=== PATIENT | male | born 1955 | race American Indian/Alaskan Native ===

== ENCOUNTER 2017-07-23 08:04 | Day surgery (SDC) | payer MEDICARE, OTHER ==
[~2017-07-23] VITALS: Ht 182.9 cm; Wt 100.7 kg
[~2017-07-23 08:04] MED LIST: ACET500 PO; ALBU90OI INH; ALBU90OI6 INH; ALBU90OI61; ALBU90OI61 INH; AMIO200 PO; AMLO10; ANDROGEL75 GM TD; ASPI325 PO; AZELASTINE137 MCG/0. NS; BUDE200IP INH; BUDE6HFA INH; BUPR150ER PO; CALCA500CH PO; CARV25 PO; CARV6.25 PO; DOXY100 PO; FLONASE ALLERG9.9 ML; FLUSAL2505 IH; FLUT.05NI; FLUT1DIS8 INH; FURO20 PO; GABA300 PO; GABA400 PO; Geri-Hydrolac140 GM TP; HYDRA25 PO; HYDRA50 PO; IPRAOI INH; LEVFLO500 PO; LISI20 PO; LORA1 PO; METO2.5 PO; MONT10T PO; NAFTIN TP; OMEP40CA12 PO; Omeprazole20 M1 PO; POTA8 PO; PRED10 PO; PRED20 PO; PRED5 PO; Percocet 5-3251 EACH PO; Prednisone20 MG PO; TERB250; TERB250 PO; TIOT18 IH; TIOT18 INH; VITAMIN D33000 UNIT PO; Ventolin Soln3 ML INH; Ventolin5 MG/1 ML; Vibramycin100 MG PO; WARF2.5 PO; WARF4 PO; WARF5 PO; Zithromax250 MG PO; [UNRECOGNIZED DRUG - REMARK]
[2018-04-06] MEDS ORDERED: DILT120 PO (03:55)
[2018-04-09] MEDS ORDERED: ALBU90OI INH (11:07)
[2018-04-09] MEDS ORDERED: CEPH500 PO (11:08)
[2018-04-09] MEDS ORDERED: DULERA 200 MCG/13 GM INH (11:08)
[2018-04-09] MEDS ORDERED: XARELTO20 MG PO (11:09)
[2018-04-09] MEDS ORDERED: ONDA4 PO (11:10)
[2018-04-09] MEDS ORDERED: SACC250C PO (11:11)
[2018-04-09] MEDS ORDERED: Metformin Hydro25 GM PO (11:12)
[2018-04-09] MEDS ORDERED: AZIT500 PO (11:28)
== END 2017-07-23 10:15 | disposition home or self-care (01) ==
LOC: ORSCSDS 08:04
PROVIDERS: Surgery
PROC: 0DBL8ZX Excision of Transverse Colon, Via Natural or Artificial Opening Endoscopic, Diagnostic (ICD-10-PCS; principal; 2017-07-23 09:30)
DX: Z12.11 Encounter for screening for malignant neoplasm of colon (principal); Z86.010 Personal history of colon polyps; D12.3 Benign neoplasm of transverse colon; I10 Essential (primary) hypertension; J44.9 Chronic obstructive pulmonary disease, unspecified; Z87.891 Personal history of nicotine dependence; G62.9 Polyneuropathy, unspecified; Z79.899 Other long term (current) drug therapy
CPT/HCPCS: 88305; J2250

== ENCOUNTER 2017-10-19 13:01 | Emergency (ER) | payer MEDICARE ==
[~2017-10-19] VITALS: Ht 182.9 cm; Wt 101.2 kg
[~2017-10-19 13:01] MED LIST changes: +FLUSAL5005 INH; -FLUT1DIS8 INH; -Omeprazole20 M1 PO
[2017-10-19 13:42] LABS: BASOPHILS ABSOLUTE AUTO 0.04 K/mm3 (0.00-0.23); BASOPHILS PERCENT AUTO 0 % (0-2); EOSINOPHILS PERCENT AUTO 0 % (0-6); Hemoglobin 16.6 g/dL (13.5-17.5); IMMATURE GRAN ABSOLUTE AUTO 0.04 K/mm3 (0.00-0.10); IMMATURE GRAN PERCENT AUTO 0 % (0-1); LYMPHOCYTES ABSOLUTE AUTO 1.11 K/mm3 (0.84-5.20); LYMPHOCYTES PERCENT AUTO 8 % (21-46); MONOCYTES ABSOLUTE AUTO 0.78 K/mm3 (0.16-1.47); MONOCYTES PERCENT AUTO 5 % (4-13); Mean Corpuscular HGB Conc 33.2 g/dL (31.5-36.5); Mean Corpuscular Volume 103 fL (80-100); Mean Platelet Volume 10.3 fL (9.1-12.4); NEUTROPHILS ABSOLUTE AUTO 12.49 K/mm3 (1.96-9.15); NEUTROPHILS PERCENT AUTO 86 % (41-73); Platelet Count 236 K/mm3 (150-400); RDW Coefficient Variation 13.1 % (11.7-14.2); RDW Standard Deviation 50.1 fL (35.1-46.3); Red Blood Cell Count 4.88 M/mm3 (4.30-5.90); White Blood Cell Count 14.46 K/mm3 (4.00-11.30)
[2017-10-19 14:00] LABS: Alanine Aminotransfer (ALT/SGP 18 U/L (12-78); Albumin, Blood 3.4 g/dL (3.4-5.0); Albumin/Globulin Ratio 0.9 (0.8-1.8); Alk Phos 82 U/L (50-136); Anion Gap 3 mmol/L (6-16); Aspartate Aminotrans (AST/SGOT 12 U/L (12-37); Bilirubin, Total 0.8 mg/dL (0.1-1.0); Blood Urea Nitrogen 21 mg/dL (8-24); Bun/Creatinine Ratio 20.4 (12.0-20.0); CO2, Blood 32 mmol/L (21-32); Calcium, Blood 8.7 mg/dL (8.5-10.1); Chloride, Blood 102 mmol/L (98-108); Creatinine, Blood 1.03 mg/dL (0.60-1.20); Globulin, Blood 3.8 g/dL (2.2-4.0); Glomerular Filtration Rate >60 (60-); Glucose, Blood 117 mg/dL (70-99); Potassium, Blood 4.7 mmol/L (3.5-5.5); Sodium, Blood 137 mmol/L (136-145); Total Protein, Blood 7.2 g/dL (6.4-8.2)
[2017-10-19] MEDS ORDERED: ALBU90OI INH (14:07)
[2017-10-19] MEDS ORDERED: LISI20 PO (14:09)
[2017-10-19] MEDS ORDERED: GABA300 PO (14:09)
[2017-10-19] MEDS ORDERED: Zithromax250 MG PO (14:34)
[2017-10-19] MEDS ORDERED: Prednisone20 MG PO (14:34)
== END 2017-10-19 14:55 | disposition home or self-care (01) ==
LOC: ER 13:01
PROVIDERS: Emergency Medicine
DX: J44.9 Chronic obstructive pulmonary disease, unspecified (principal); I11.0 Hypertensive heart disease with heart failure; I50.9 Heart failure, unspecified; I48.91 Unspecified atrial fibrillation; Z79.899 Other long term (current) drug therapy; Z79.82 Long term (current) use of aspirin; Z79.52 Long term (current) use of systemic steroids; Z87.891 Personal history of nicotine dependence
CPT/HCPCS: 36415; 71045; 80053; 85025; 93005; 93010; 94640; 94644; 96374; 99283; J2930

== ENCOUNTER 2018-03-18 08:38 | Inpatient (IN) | payer MEDICARE ==
[~2018-03-18] VITALS: Ht 182.9 cm; Wt 103.0 kg
[~2018-03-18 08:38] MED LIST changes: -FLUSAL5005 INH; +FLUT1DIS8 INH; +Omeprazole20 M1 PO
[2018-03-18 09:37] LABS: BASOPHILS ABSOLUTE AUTO 0.04 K/mm3 (0.00-0.23); BASOPHILS PERCENT AUTO 0 % (0-2); EOSINOPHILS ABSOLUTE AUTO 0.02 K/mm3 (0.00-0.68); EOSINOPHILS PERCENT AUTO 0 % (0-6); Hemoglobin 17.8 g/dL (13.5-17.5); IMMATURE GRAN ABSOLUTE AUTO 0.05 K/mm3 (0.00-0.10); IMMATURE GRAN PERCENT AUTO 0 % (0-1); LYMPHOCYTES ABSOLUTE AUTO 2.12 K/mm3 (0.84-5.20); LYMPHOCYTES PERCENT AUTO 18 % (21-46); MONOCYTES ABSOLUTE AUTO 1.14 K/mm3 (0.16-1.47); MONOCYTES PERCENT AUTO 10 % (4-13); Mean Corpuscular HGB 32.6 pg (26.0-34.0); Mean Corpuscular Volume 102 fL (80-100); Mean Platelet Volume 10.9 fL (9.1-12.4); NEUTROPHILS ABSOLUTE AUTO 8.45 K/mm3 (1.96-9.15); NEUTROPHILS PERCENT AUTO 72 % (41-73); Platelet Count 226 K/mm3 (150-400); RDW Coefficient Variation 13.5 % (11.7-14.2); RDW Standard Deviation 51.6 fL (35.1-46.3); Red Blood Cell Count 5.46 M/mm3 (4.30-5.90); White Blood Cell Count 11.82 K/mm3 (4.00-11.30)
[2018-03-18 09:39] LABS: Hematocrit 55.7 % (37.0-53.0)
[2018-03-18 10:03] LABS: Alanine Aminotransfer (ALT/SGP 54 U/L (12-78); Albumin, Blood 3.5 g/dL (3.4-5.0); Albumin/Globulin Ratio 0.9 (0.8-1.8); Alk Phos 88 U/L (50-136); Anion Gap 4 mmol/L (6-16); Aspartate Aminotrans (AST/SGOT 47 U/L (12-37); Bilirubin, Total 0.5 mg/dL (0.1-1.0); Blood Urea Nitrogen 25 mg/dL (8-24); Bun/Creatinine Ratio 19.4 (12.0-20.0); CO2, Blood 35 mmol/L (21-32); Chloride, Blood 97 mmol/L (98-108); Creatinine, Blood 1.29 mg/dL (0.60-1.20); Globulin, Blood 3.7 g/dL (2.2-4.0); Glomerular Filtration Rate >60 (60-); Glucose, Blood 102 mg/dL (70-99); Potassium, Blood 4.6 mmol/L (3.5-5.5); Sodium, Blood 136 mmol/L (136-145); Total Protein, Blood 7.2 g/dL (6.4-8.2)
[2018-03-18 10:41] LABS: International Normalized Ratio 1.08; Prothrombin Time Results 11.1 Sec (9.7-11.5)
[2018-03-18] MEDS ORDERED: [UNRECOGNIZED DRUG - CODE] PO (11:26)
[2018-03-18] MEDS ORDERED: [UNRECOGNIZED DRUG - CODE] PO (11:27)
[2018-03-18 12:14] LABS: Free Thyroxine 1.01 ng/dL (0.70-1.60); Magnesium, Blood 1.9 mg/dL (1.6-2.4)
[2018-03-18 12:17] LABS: Thyroid Stimulating Hormone 3.46 uIU/mL (0.360-4.800)
[2018-03-18 15:44] LABS: CPK Creatine Kinase 82 U/L (39-308); Troponin I <0.015 ng/mL (0.000-0.040)
[2018-03-18 21:48] LABS: Troponin I 0.023 ng/mL (0.000-0.040)
[2018-03-19 05:41] LABS: BASOPHILS ABSOLUTE AUTO 0.04 K/mm3 (0.00-0.23); BASOPHILS PERCENT AUTO 0 % (0-2); EOSINOPHILS ABSOLUTE AUTO 0.02 K/mm3 (0.00-0.68); EOSINOPHILS PERCENT AUTO 0 % (0-6); Hematocrit 50.2 % (37.0-53.0); IMMATURE GRAN ABSOLUTE AUTO 0.03 K/mm3 (0.00-0.10); IMMATURE GRAN PERCENT AUTO 0 % (0-1); LYMPHOCYTES ABSOLUTE AUTO 2.28 K/mm3 (0.84-5.20); LYMPHOCYTES PERCENT AUTO 25 % (21-46); MONOCYTES ABSOLUTE AUTO 0.93 K/mm3 (0.16-1.47); MONOCYTES PERCENT AUTO 10 % (4-13); Mean Corpuscular HGB 32.9 pg (26.0-34.0); Mean Corpuscular HGB Conc 31.9 g/dL (31.5-36.5); Mean Corpuscular Volume 103 fL (80-100); NEUTROPHILS ABSOLUTE AUTO 5.66 K/mm3 (1.96-9.15); NEUTROPHILS PERCENT AUTO 63 % (41-73); Platelet Count 167 K/mm3 (150-400); RDW Coefficient Variation 13.8 % (11.7-14.2); RDW Standard Deviation 53.1 fL (35.1-46.3); Red Blood Cell Count 4.87 M/mm3 (4.30-5.90); White Blood Cell Count 8.96 K/mm3 (4.00-11.30)
[2018-03-19 05:54] LABS: Alanine Aminotransfer (ALT/SGP 67 U/L (12-78); Albumin, Blood 2.9 g/dL (3.4-5.0); Albumin/Globulin Ratio 0.9 (0.8-1.8); Alk Phos 80 U/L (50-136); Anion Gap 5 mmol/L (6-16); Aspartate Aminotrans (AST/SGOT 46 U/L (12-37); Bilirubin, Total 0.3 mg/dL (0.1-1.0); Blood Urea Nitrogen 23 mg/dL (8-24); Bun/Creatinine Ratio 21.5 (12.0-20.0); CO2, Blood 28 mmol/L (21-32); Calcium, Blood 7.8 mg/dL (8.5-10.1); Chloride, Blood 104 mmol/L (98-108); Creatinine, Blood 1.07 mg/dL (0.60-1.20); Globulin, Blood 3.3 g/dL (2.2-4.0); Glomerular Filtration Rate >60 (60-); Glucose, Blood 93 mg/dL (70-99); Potassium, Blood 4.5 mmol/L (3.5-5.5); Sodium, Blood 137 mmol/L (136-145); Total Protein, Blood 6.2 g/dL (6.4-8.2)
[2018-03-20 04:47] LABS: Alanine Aminotransfer (ALT/SGP 64 U/L (12-78); Albumin/Globulin Ratio 0.9 (0.8-1.8); Alk Phos 89 U/L (50-136); Anion Gap 3 mmol/L (6-16); Aspartate Aminotrans (AST/SGOT 30 U/L (12-37); Bilirubin, Total 0.3 mg/dL (0.1-1.0); Blood Urea Nitrogen 17 mg/dL (8-24); Bun/Creatinine Ratio 17.1 (12.0-20.0); CO2, Blood 34 mmol/L (21-32); Chloride, Blood 102 mmol/L (98-108); Creatinine, Blood 0.99 mg/dL (0.60-1.20); Globulin, Blood 3.3 g/dL (2.2-4.0); Glomerular Filtration Rate >60 (60-); Glucose, Blood 123 mg/dL (70-99); Potassium, Blood 4.4 mmol/L (3.5-5.5); Sodium, Blood 139 mmol/L (136-145); Total Protein, Blood 6.3 g/dL (6.4-8.2)
[2018-03-21] MEDS ORDERED: ACET325 PO (10:50)
[2018-03-21] MEDS ORDERED: DILT60ER PO (10:50)
[2018-03-21] MEDS ORDERED: Nicoderm Cq1 EAC1 TD (10:51)
== END 2018-03-21 11:25 | disposition home or self-care (01) | DRG 310 ==
LOC: ER 08:38 → PCU 08:39 → ER 11:24 → PCU 11:24
PROVIDERS: Emergency Medicine; Family Medicine
PROC: 3E0234Z Introduction of Serum, Toxoid and Vaccine into Muscle, Percutaneous Approach (ICD-10-PCS; principal; 2018-03-21)
DX: I48.92 Unspecified atrial flutter (principal); I48.0 Paroxysmal atrial fibrillation; I07.1 Rheumatic tricuspid insufficiency; J44.9 Chronic obstructive pulmonary disease, unspecified; F17.210 Nicotine dependence, cigarettes, uncomplicated; Z99.81 Dependence on supplemental oxygen; I11.0 Hypertensive heart disease with heart failure; I50.9 Heart failure, unspecified; Z66 Do not resuscitate; Z23 Encounter for immunization; Z79.82 Long term (current) use of aspirin; Z79.51 Long term (current) use of inhaled steroids; Z79.52 Long term (current) use of systemic steroids; Z79.899 Other long term (current) drug therapy
CPT/HCPCS: 36415; 71045; 78451; 80053; 82550; 83735; 84439; 84443; 84484; 85025; 85610; 85730; 90686; 93005; 93010; 93017; 93306; 94640; 94760; 96361; 96365; 96366; 96367; 96375; 99285-25; A9500; G0008; J0153; J0706; J1644; J1650; J2785; J7030

== ENCOUNTER 2018-05-08 12:58 | Emergency (ER) | payer MEDICARE, OTHER ==
[~2018-05-08] VITALS: Ht 182.9 cm; Wt 105.7 kg
[~2018-05-08 12:58] MED LIST changes: +ACET325 PO; +AZIT500 PO; +CEPH500 PO; +DILT120 PO; +DILT60ER PO; +DULERA 200 MCG/13 GM INH; +Metformin Hydro25 GM PO; +Nicoderm Cq1 EAC1 TD; +ONDA4 PO; +SACC250C PO; +XARELTO20 MG PO; +[UNRECOGNIZED DRUG - CODE] PO; +[UNRECOGNIZED DRUG - CODE] PO
[2018-05-08] MEDS ORDERED: DILT180 PO (13:30)
[2018-05-08] MEDS ORDERED: LISI5 PO (13:32)
[2018-05-08 14:20] LABS: BASOPHILS ABSOLUTE AUTO 0.03 K/mm3 (0.00-0.23); BASOPHILS PERCENT AUTO 0 % (0-2); EOSINOPHILS ABSOLUTE AUTO 0.02 K/mm3 (0.00-0.68); EOSINOPHILS PERCENT AUTO 0 % (0-6); Hematocrit 49.1 % (37.0-53.0); Hemoglobin 15.8 g/dL (13.5-17.5); IMMATURE GRAN ABSOLUTE AUTO 0.05 K/mm3 (0.00-0.10); IMMATURE GRAN PERCENT AUTO 1 % (0-1); LYMPHOCYTES ABSOLUTE AUTO 1.67 K/mm3 (0.84-5.20); LYMPHOCYTES PERCENT AUTO 20 % (21-46); MONOCYTES ABSOLUTE AUTO 1.06 K/mm3 (0.16-1.47); MONOCYTES PERCENT AUTO 13 % (4-13); Mean Corpuscular HGB 32.4 pg (26.0-34.0); Mean Corpuscular HGB Conc 32.2 g/dL (31.5-36.5); Mean Corpuscular Volume 101 fL (80-100); Mean Platelet Volume 10.5 fL (9.1-12.4); NEUTROPHILS ABSOLUTE AUTO 5.41 K/mm3 (1.96-9.15); NEUTROPHILS PERCENT AUTO 66 % (41-73); Platelet Count 244 K/mm3 (150-400); RDW Standard Deviation 48.1 fL (35.1-46.3); Red Blood Cell Count 4.88 M/mm3 (4.30-5.90); White Blood Cell Count 8.24 K/mm3 (4.00-11.30)
[2018-05-08 14:36] LABS: Alanine Aminotransfer (ALT/SGP 34 U/L (12-78); Albumin, Blood 2.9 g/dL (3.4-5.0); Albumin/Globulin Ratio 0.8 (0.8-1.8); Alk Phos 101 U/L (50-136); Anion Gap 7 mmol/L (6-16); Aspartate Aminotrans (AST/SGOT 29 U/L (12-37); Bilirubin, Total 0.8 mg/dL (0.1-1.0); Blood Urea Nitrogen 18 mg/dL (8-24); Bun/Creatinine Ratio 17.1 (12.0-20.0); CO2, Blood 34 mmol/L (21-32); Chloride, Blood 94 mmol/L (98-108); Creatinine, Blood 1.05 mg/dL (0.60-1.20); Globulin, Blood 3.6 g/dL (2.2-4.0); Glomerular Filtration Rate >60 (60-); Glucose, Blood 94 mg/dL (70-99); Potassium, Blood 4.2 mmol/L (3.5-5.5); Sodium, Blood 135 mmol/L (136-145); Total Protein, Blood 6.5 g/dL (6.4-8.2)
[2018-05-08] MEDS ORDERED: Lasix20 MG PO (15:33)
== END 2018-05-08 15:48 | disposition home or self-care (01) ==
LOC: ER 12:58
PROVIDERS: Emergency Medicine
DX: R60.0 Localized edema (principal); I11.0 Hypertensive heart disease with heart failure; I50.9 Heart failure, unspecified; I48.91 Unspecified atrial fibrillation; J44.9 Chronic obstructive pulmonary disease, unspecified; F17.210 Nicotine dependence, cigarettes, uncomplicated; Z79.899 Other long term (current) drug therapy; Z79.51 Long term (current) use of inhaled steroids
CPT/HCPCS: 36415; 80053; 83880; 84484; 85025; 93005; 93010; 99284-25

== ENCOUNTER 2018-08-02 19:05 | Emergency (ER) | payer MEDICARE, OTHER ==
[~2018-08-02] VITALS: Ht 182.9 cm; Wt 97.1 kg
[~2018-08-02 19:05] MED LIST changes: +DILT180 PO; +LISI5 PO; +Lasix20 MG PO
[2018-08-02] MEDS ORDERED: Metformin HCl500 MG PO (19:50)
[2018-08-02] MEDS ORDERED: TORSE20 PO (19:50)
[2018-08-02] MEDS ORDERED: Bisoprolol Fuma10 MG PO (19:50)
[2018-08-02 19:51] LABS: BASOPHILS ABSOLUTE AUTO 0.03 K/mm3 (0.00-0.23); BASOPHILS PERCENT AUTO 0 % (0-2); EOSINOPHILS ABSOLUTE AUTO 0.03 K/mm3 (0.00-0.68); EOSINOPHILS PERCENT AUTO 0 % (0-6); Hematocrit 51.3 % (37.0-53.0); Hemoglobin 16.5 g/dL (13.5-17.5); IMMATURE GRAN ABSOLUTE AUTO 0.03 K/mm3 (0.00-0.10); IMMATURE GRAN PERCENT AUTO 0 % (0-1); LYMPHOCYTES ABSOLUTE AUTO 2.21 K/mm3 (0.84-5.20); LYMPHOCYTES PERCENT AUTO 25 % (21-46); MONOCYTES ABSOLUTE AUTO 0.72 K/mm3 (0.16-1.47); MONOCYTES PERCENT AUTO 8 % (4-13); Mean Corpuscular HGB 31.4 pg (26.0-34.0); Mean Corpuscular HGB Conc 32.2 g/dL (31.5-36.5); Mean Corpuscular Volume 98 fL (80-100); Mean Platelet Volume 11.3 fL (9.1-12.4); NEUTROPHILS PERCENT AUTO 66 % (41-73); Platelet Count 161 K/mm3 (150-400); RDW Coefficient Variation 14.2 % (11.7-14.2); RDW Standard Deviation 51.4 fL (35.1-46.3); Red Blood Cell Count 5.26 M/mm3 (4.30-5.90); White Blood Cell Count 8.92 K/mm3 (4.00-11.30)
[2018-08-02] MEDS ORDERED: LOSA25 PO (19:51)
[2018-08-02 20:06] LABS: Alanine Aminotransfer (ALT/SGP 82 U/L (12-78); Albumin, Blood 3.5 g/dL (3.4-5.0); Albumin/Globulin Ratio 0.9 (0.8-1.8); Alk Phos 122 U/L (50-136); Anion Gap 9 mmol/L (6-16); Aspartate Aminotrans (AST/SGOT 59 U/L (12-37); Bilirubin, Total 0.4 mg/dL (0.1-1.0); Blood Urea Nitrogen 38 mg/dL (8-24); Bun/Creatinine Ratio 33.3 (12.0-20.0); CO2, Blood 29 mmol/L (21-32); Calcium, Blood 8.6 mg/dL (8.5-10.1); Chloride, Blood 100 mmol/L (98-108); Creatinine, Blood 1.14 mg/dL (0.60-1.20); Globulin, Blood 3.7 g/dL (2.2-4.0); Glomerular Filtration Rate >60 (60-); Glucose, Blood 133 mg/dL (70-99); Potassium, Blood 3.9 mmol/L (3.5-5.5); Sodium, Blood 138 mmol/L (136-145); Total Protein, Blood 7.2 g/dL (6.4-8.2); Troponin I <0.015 ng/mL (0.000-0.040)
[2018-08-02 21:01] LABS: Source, Urine Clean Catch
[2018-08-02 21:06] LABS: Bilirubin, Urine Neg (Neg); Blood, Urine Neg (Neg); Glucose Qualitative, Urine Neg (Neg); Ketones, Urine Neg (Neg); Leukocyte Esterase, Urine Neg (Neg); Nitrite, Urine Neg (Neg); Protein, Urine Neg (Neg); Urobilinogen, Urine NORM (Normal)
[2018-08-02 21:15] LABS: Appearance, Urine Clear (Clear); Color, Urine Yellow (P-Yellow)
[2018-08-02 21:57] LABS: Influenza A Negative (NEGATIVE); Influenza B Negative (NEGATIVE)
[2018-08-02] MEDS ORDERED: Prednisone20 MG PO (23:38)
== END 2018-08-03 00:15 | disposition home or self-care (01) ==
LOC: ER 19:05
PROVIDERS: Emergency Medicine; Physician Assistant
DX: J44.1 Chronic obstructive pulmonary disease with (acute) exacerbation (principal); I48.91 Unspecified atrial fibrillation; Z79.899 Other long term (current) drug therapy; Z79.84 Long term (current) use of oral hypoglycemic drugs; I11.0 Hypertensive heart disease with heart failure; I50.9 Heart failure, unspecified; F17.210 Nicotine dependence, cigarettes, uncomplicated
CPT/HCPCS: 36415; 71046; 80053; 81003; 83880; 84484; 85025; 87804; 93005; 93010; 94640; 96374; 96375; 99285-25; J2930

== ENCOUNTER 2018-09-09 11:57 | Inpatient (IN) | payer MEDICARE, OTHER ==
[~2018-09-09] VITALS: Ht 182.9 cm; Wt 109.8 kg
[~2018-09-09 11:57] MED LIST changes: -Omeprazole20 M1 PO; -TIOT18 INH; -XARELTO20 MG PO
[2018-09-09 13:21] LABS: BASOPHILS ABSOLUTE AUTO 0.05 K/mm3 (0.00-0.23); BASOPHILS PERCENT AUTO 1 % (0-2); EOSINOPHILS ABSOLUTE AUTO 0.02 K/mm3 (0.00-0.68); EOSINOPHILS PERCENT AUTO 0 % (0-6); Hematocrit 50.7 % (37.0-53.0); Hemoglobin 16.1 g/dL (13.5-17.5); IMMATURE GRAN ABSOLUTE AUTO 0.04 K/mm3 (0.00-0.10); IMMATURE GRAN PERCENT AUTO 0 % (0-1); LYMPHOCYTES ABSOLUTE AUTO 1.96 K/mm3 (0.84-5.20); LYMPHOCYTES PERCENT AUTO 21 % (21-46); MONOCYTES ABSOLUTE AUTO 1.12 K/mm3 (0.16-1.47); MONOCYTES PERCENT AUTO 12 % (4-13); Mean Corpuscular HGB 29.8 pg (26.0-34.0); Mean Corpuscular HGB Conc 31.8 g/dL (31.5-36.5); Mean Corpuscular Volume 94 fL (80-100); Mean Platelet Volume 11.6 fL (9.1-12.4); NEUTROPHILS ABSOLUTE AUTO 6.16 K/mm3 (1.96-9.15); NEUTROPHILS PERCENT AUTO 66 % (41-73); Platelet Count 214 K/mm3 (150-400); RDW Coefficient Variation 15.2 % (11.7-14.2); RDW Standard Deviation 52.1 fL (35.1-46.3); Red Blood Cell Count 5.41 M/mm3 (4.30-5.90); White Blood Cell Count 9.35 K/mm3 (4.00-11.30)
[2018-09-09 13:30] LABS: Albumin, Blood 3.2 g/dL (3.4-5.0); Albumin/Globulin Ratio 0.9 (0.8-1.8); Bilirubin, Total 0.9 mg/dL (0.1-1.0); Bun/Creatinine Ratio 31.8 (12.0-20.0); Calcium, Blood 8.7 mg/dL (8.5-10.1); Creatinine, Blood 1.32 mg/dL (0.60-1.20); Globulin, Blood 3.6 g/dL (2.2-4.0); Magnesium, Blood 1.8 mg/dL (1.6-2.4); Potassium, Blood 4.4 mmol/L (3.5-5.5); Total Protein, Blood 6.8 g/dL (6.4-8.2); Troponin I 0.029 ng/mL (0.000-0.040)
[2018-09-09] MEDS ORDERED: **INCOMPLETE MED REC (15:09)
[2018-09-09] MEDS ORDERED: ALBU90OI INH (15:12)
[2018-09-09] MEDS ORDERED: Bisoprolol Fuma10 MG PO (15:12)
[2018-09-09] MEDS ORDERED: BUPR150ER PO (15:14)
[2018-09-09] MEDS ORDERED: Flonase 0.05% N16 GM (15:15)
[2018-09-09] MEDS ORDERED: LOSA50 PO (15:17)
[2018-09-09] MEDS ORDERED: Metformin HCl500 MG PO (15:17)
[2018-09-09] MEDS ORDERED: MONT10T PO (15:18)
[2018-09-09] MEDS ORDERED: Omeprazole20 M1 PO (15:19)
[2018-09-09] MEDS ORDERED: TIOT18 INH (15:20)
[2018-09-09] MEDS ORDERED: XARELTO20 MG PO (15:20)
[2018-09-09] MEDS ORDERED: TORSE20 PO (15:21)
[2018-09-09] MEDS ORDERED: Flovent 220 Ora12 GM INH (15:22)
[2018-09-09] MEDS ORDERED: GABA300 PO (15:23)
--- NOTE | 2018-09-09 22:00 | NUR ---
RECEIVED HAND OFF FROM AUGUSTA COONEY USING SBAR. TRANSPORTED TO ROOM VIA STRETCHER. TRANSFERED SELF TO BED WITH STANDBY ASSISTANCE, TOLERATED WELL. SITTING ON SIDE OF BED WITH EYES OPEN. AAO X, LACY, FOLLOWS ALL COMMANDS. ORIENTED TO ROOM, CALL SYSTEM, AND POC, VOICES UNDERSTANDING. RESPIRATIONS EVEN, SHALLOW, AND UNLABORED ON ROOM AIR. STATES THAT HE FEELS SOB. O2 AT 2L PLACED, REPORTS FEELING RELIEF OF SOB. LUNG SOUNDS COARSE BILATERALLY AND DIMINISHED IN BASES. FINE CRACKLES NOTED IN RLL. ABDOMEN SOFT AND NONDISTENDED. BOWEL SOUNDS NOTED IN ALL QUADS. REPORTS THAT HE HAD A DIARRHEA INCIDENT WHILE IN THE ER EARLIER TODAY IN CONJUNCTION WITH PROJECTILE VOMITING. DENIES NEED FOR BM OR ANY N/V AT THIS TIME. CONTINENT OF BOWEL AND BLADDER, USES COMMODE AND URINAL. LEFT FA 20G SL PIV IS PATENT, FLUSING WITH EASE. +3 PITTING EDEMA NOTED TO BLE AND UP TO WAIST. STATES THAT THIS HAS BEEN BUILDING UP FOR THE PAST 2 WEEKS AND HAS MADE IT MORE DIFFICULT FOR HIM TO STAND AND FEEL STABLE. DENIES FURTHER NEEDS OR WANTS AT THIS TIME. SAFETY MEASURES IN PLACE. ADMISSION ASSESSMENT IN PROGESS. WILL CONTINUE TO MONITOR.
--- NOTE | 2018-09-10 05:34 | NUR ---
NO CHANGES SINCE ADMISSION. MEDICATION FOR MEJIA EFFECTIVE. DENIES FURTHER NEEDS OR WANTS AT THIS TIME. SAFETY MEASURES IN PLACE. WILL GIVE HAND OFF TO ONCOMING SHIFT USING SBAR DURING BEDSIDE REPORT.
[2018-09-10 05:37] LABS: Bun/Creatinine Ratio 30.4 (12.0-20.0); Calcium, Blood 8.6 mg/dL (8.5-10.1); Creatinine, Blood 1.71 mg/dL (0.60-1.20); Potassium, Blood 4.7 mmol/L (3.5-5.5)
--- NOTE | 2018-09-10 06:55 | NUR ---
PT REQUESTED NURSING TO ENTER ROOM DUE TO "BLOATING". UPON ENTRY PT SITTING ON SIDE OF BED. STATES THAT HE FEELS BLOATED AND HIS STOMACH SUDDENELY GOT BIGGER WHILE HE WAS STANDING UP TO SHAVE. HE STATED THAT HIS ABDOMEN HURT TOO. HE WAS PRESSING ON HIS ABDOMEN AND TALKING ABOUT THE SUDDEN CHANGES, NURSING NOTED PITTING EDEMA ON SKIN. PT STATES THAT THIS HAS HAPPENED BEFORE AND IT TOOK A CHANGE FROM FUROSEMIDE TO TOROSEMIDE FOR RELIEF OVER SEVERAL DAYS. TELEMETRY REAPPLIED AFTER PT STATED THAT HE DIDN'T FEEL UP TO TAKING A SHOWER. INSTRUCTED TO REPLACED O2 WHILE SITTING ON BED, PT IMMEDIATELY COMPLIED. DENIES FURHTER NEEDS OR WANTS AT THIS TIME. SAFETY MEASURES IN PLACE. WILL GIVE HAND OFF TO ONCOMING SHIFT USIGN SBAR.
[2018-09-10 08:48] LABS: BASOPHILS PERCENT AUTO 0 % (0-2); EOSINOPHILS PERCENT AUTO 0 % (0-6); Hematocrit 47.1 % (37.0-53.0); Hemoglobin 14.8 g/dL (13.5-17.5); IMMATURE GRAN ABSOLUTE AUTO 0.03 K/mm3 (0.00-0.10); IMMATURE GRAN PERCENT AUTO 0 % (0-1); LYMPHOCYTES PERCENT AUTO 9 % (21-46); MONOCYTES ABSOLUTE AUTO 0.29 K/mm3 (0.16-1.47); MONOCYTES PERCENT AUTO 4 % (4-13); Mean Corpuscular HGB Conc 31.4 g/dL (31.5-36.5); Mean Corpuscular Volume 96 fL (80-100); Mean Platelet Volume 11.4 fL (9.1-12.4); NEUTROPHILS ABSOLUTE AUTO 6.92 K/mm3 (1.96-9.15); NEUTROPHILS PERCENT AUTO 87 % (41-73); Platelet Count 206 K/mm3 (150-400); RDW Coefficient Variation 15.2 % (11.7-14.2); RDW Standard Deviation 53.4 fL (35.1-46.3); Red Blood Cell Count 4.93 M/mm3 (4.30-5.90); White Blood Cell Count 7.94 K/mm3 (4.00-11.30)
[2018-09-10 09:01] LABS: Bun/Creatinine Ratio 32.7 (12.0-20.0); Calcium, Blood 8.6 mg/dL (8.5-10.1); Creatinine, Blood 1.65 mg/dL (0.60-1.20); Potassium, Blood 4.6 mmol/L (3.5-5.5)
[2018-09-10 13:23] LABS: Adenovirus Not Detected (NOT DETECT); Bordetella pertussis Not Detected (NOT DETECT); Chlamydophila pneumoniae Not Detected (NOT DETECT); Coronavirus 229E Not Detected (NOT DETECT); Coronavirus HKU1 Not Detected (NOT DETECT); Coronavirus NL63 Not Detected (NOT DETECT); Coronavirus OC43 Not Detected (NOT DETECT); Human Metapneumovirus Not Detected (NOT DETECT); Human Rhinovirus/Enterovirus Not Detected (NOT DETECT); Influenza A Not Detected (NOT DETECT); Influenza A/2009-H1 Not Detected (NOT DETECT); Influenza A/H1 Not Detected (NOT DETECT); Influenza A/H3 Not Detected (NOT DETECT); Influenza B Not Detected (NOT DETECT); Mycoplasma pneumoniae Not Detected (NOT DETECT); Parainfluenza Virus 1 Not Detected (NOT DETECT); Parainfluenza Virus 2 Not Detected (NOT DETECT); Parainfluenza Virus 3 Not Detected (NOT DETECT); Parainfluenza Virus 4 Not Detected (NOT DETECT); Respiratory Syncytial Virus Not Detected (NOT DETECT)
--- NOTE | 2018-09-10 13:43 | NUR ---
Patient was sitting on the edge of his bed and alert when I entered patient's room. Therapeutic alliance was easily established so patient openly explained about his spiritual journey, his family unit complications and his past failures. I listened empathically, explored holiness beliefs, heard confession, provided pastoral drug and alcohol counselor and prayer. Patient responded well and showed signs of catharsis and restored germaine. Patient expressed gratitude for the visit.
--- NOTE | 2018-09-10 15:48 | NUR ---
INCREASED WORK OF BREATHING PT WORKING HARD TO BREATHE. EDEMA FROM TRUNK DOWN. PT REPORTING CHEST "PRESSURE", IS NOT ABLE TO TELL IF CP OR BREATHING. CAP REFILL 4-[address] MINER AND REPORTED. ORDERS OBTAINED.
--- NOTE | 2018-09-10 18:38 | NUR ---
SUMMARY PT EDEMATOUS T/O SHIFT. REQUIRED PRN BREATHING TX THIS SHIFT. C/O TIGHTNESS IN CHEST, COULD NOT TELL STAFF IF FELT RESPIRATORY OR CARDIAC. APPEARED SOB. CAP REFILL AT THAT TIME 4-5 SECONDS. EDEMA FROM TORSO DOWN TO FEET. CALLED DR MINER AND DISCUSSED. ADMINSTERED OT DOSE 40 MG IV LASIX. VSS. MEDICATED PER ORDERS FOR MEJIA. PT SITTING ON SIDE OF BED, REPORTS MEJIA HAS IMPROVED.
--- NOTE | 2018-09-10 19:11 | NUR ---
REPORT GIVEN TO ONCOMING SHIFT.
--- NOTE | 2018-09-11 04:51 | NUR ---
SHIFT SUMMARY PT REMAINS ON FLOOR FOR CHF EXACERBATION. BEING TX WITH DIURECTIC THERAPY. EDEMA PRESENT FROM ABD DOWN, THOUGH WEIGHT HAS DROPPED THIS MORNING FROM ADMISSION WEIGHT. HE HAS COMPLAINED OF SOME SOB, BREATHING TX AND O2 PRN. PT ELEVATING BLE WHILE IN BED. HIS LEGS ARE SHINY FROM THE EDEMA. HYPOTENSIVE THIS AM BUT ASYMPTOMATIC. HE HAS NO DIZZINESS OR UNDUE WEAKNESS. NO CAVERAGE AT HS FOR CBGS. SEE I&OS. WILL CTM UNTIL PASS TO NEXT SHIFT.
[2018-09-11 10:04] LABS: Bun/Creatinine Ratio 35.1 (12.0-20.0); Calcium, Blood 8.8 mg/dL (8.5-10.1); Creatinine, Blood 1.74 mg/dL (0.60-1.20)
[2018-09-11 12:42] LABS: Bilirubin, Urine Neg (Neg); Blood, Urine Neg (Neg); Glucose Qualitative, Urine Neg (Neg); Ketones, Urine Neg (Neg); Leukocyte Esterase, Urine Neg (Neg); Nitrite, Urine Neg (Neg); Protein, Urine Neg (Neg); Urobilinogen, Urine 1+ (Normal)
[2018-09-11 13:07] LABS: Appearance, Urine Clear (Clear); Color, Urine Yellow (P-Yellow)
[2018-09-11 13:18] LABS: Creatinine, Urine Random 80.8 mg/dL (27.00-270.00)
--- NOTE | 2018-09-11 15:03 | NUR ---
Patient was sitting on the edge of his bed and alert when I entered patient's room. Patient openly shared about his thoughts about his medical conditions "taking him out" in the near future, about his desires to be before he passes away and his hurts that are a result of family unit complications. I listened empathically, provided pastoral counseling specialist, companionship and prayer. Patient responded well and displayed evidence of less fear and more confidence for the days he does have. Patient expressed gratitude for the visit and asked if I could return next day.
--- NOTE | 2018-09-11 17:03 | NUR ---
SUMMARY PT CONTINUES TO HAVE SIGNIFICANT EDEMA. ABDOMEN STILL FIRM. EDEMA TO THIGHS IMPROVED, STILL PITTING FROM KNEES DOWN. MEDICATED DURING SHIFT FOR NAUSEA AND GAS PAIN. INDEPENDENT IN ROOM. PLEASANT AND COOPERATIVE.
[2018-09-12 05:33] LABS: Albumin, Blood 3.3 g/dL (3.4-5.0); Anion Gap 8 mmol/L (6-16); Blood Urea Nitrogen 68 mg/dL (8-24); Bun/Creatinine Ratio 37.8 (12.0-20.0); CO2, Blood 30 mmol/L (21-32); Chloride, Blood 95 mmol/L (98-108); Glomerular Filtration Rate 41 (60-); Glucose, Blood 130 mg/dL (70-99); Phosphorus, Blood 5.8 mg/dL (2.5-4.9); Potassium, Blood 5.4 mmol/L (3.5-5.5); Sodium, Blood 133 mmol/L (136-145)
--- NOTE | 2018-09-12 06:09 | NUR ---
SHIFT SUMMARY PT REMAINS ON FLOOR FOR CHF EXACERBATION. PT DIURESING AND ON A 1 LITER FLUID RESTRICTION. NEGATIVE FLUID BALANCE OVERNIGHT, THOUGH WEIGHT APPEARS TO HAVE INCREASED. PT IS A&O, ABLE TO MAKE NEEDS KNOWN. PITTING EDEMA TO ABD AND BLE REMAINS. WILL CTM UNTIL PASS TO NEXT SHIFT.
[2018-09-12 13:40] LABS: Albumin, Blood 3.2 g/dL (3.4-5.0); Anion Gap 7 mmol/L (6-16); Blood Urea Nitrogen 77 mg/dL (8-24); Bun/Creatinine Ratio 47.2 (12.0-20.0); CO2, Blood 30 mmol/L (21-32); Calcium, Blood 8.9 mg/dL (8.5-10.1); Chloride, Blood 95 mmol/L (98-108); Creatinine, Blood 1.63 mg/dL (0.60-1.20); Glomerular Filtration Rate 46 (60-); Glucose, Blood 165 mg/dL (70-99); Phosphorus, Blood 4.5 mg/dL (2.5-4.9); Potassium, Blood 4.6 mmol/L (3.5-5.5); Sodium, Blood 132 mmol/L (136-145)
--- NOTE | 2018-09-12 17:48 | NUR ---
SUMMARY NICKEL SIZED AREA ON LEFT FOREARM WITH AREA OF CLEAR OOZING- COVERED WITH TELFA AND WRAPPED WITH KERLIX. PATIENT FEELS THAT SWELLING HAS DECREASED IN ABDOMEN AND LEGS. PATIENT AMBULATING IN ROOM
--- NOTE | 2018-09-12 22:46 | NUR ---
WHEN READY. OFFERED ASSITING TO ELEVATE LEGS.PATIENT REFUSED. NOTIFIED RN
--- NOTE | 2018-09-13 04:26 | NUR ---
SHIFT SUMMARY: PT A&O X3, VS WNL. SBA; PT ENCOURAGED TO AMBULATE AND OFFERED TO WALK SEVERAL TIMES. CONTINUES TO HAVE EDEMA TO LEGS AND ABD. COMPLIANT WITH 1 LITER FLUID RESTRICTION. USING O2 PRN. C/O SOB WITH EXERTION. DENIES C/P. REQUESTING RT Q4. GIVEN TYLENOL ONCE FOR NOSE/THROAT PAIN R/T NC. FLUID WEEPING FROM SKIN ON L FOREARM. COVERED WITH GAUZE AND COBAN. EDUCATED ON FLUID RESTRICTION, LOW SODIUM + HEART HEALTHY DIET.
[2018-09-13 04:51] LABS: Bun/Creatinine Ratio 44.5 (12.0-20.0); Calcium, Blood 8.9 mg/dL (8.5-10.1); Creatinine, Blood 1.46 mg/dL (0.60-1.20); Potassium, Blood 4.3 mmol/L (3.5-5.5)
--- NOTE | 2018-09-13 17:21 | NUR ---
SHIFT SUMMARY PT A&OX4, VSS, CBG CNI. DIURESING W/3L OUT TODAY. COMPLYING WITH 1L FLUID RESTRICTION. EDEMA TO ABD AND BLE 4T IMPROVING. INDEPENDENT IN ROOM AND TO BRP. USES OXYGEN NEEDED. WCTM & TX PER EMAR UNTIL REPORT GIVEN TO ONCOMING SHUBHAM RN.
--- NOTE | 2018-09-14 05:16 | NUR ---
EXPLAINED FOR CLEANING AND SAFE KEEPING. PATIENT REFUSED.OFFERED PATIENT NEW CLEAN CLOTHES. REFUSED
--- NOTE | 2018-09-14 05:48 | NUR ---
SHIFT SUMMARY: NO ACUTE CHANGES OVER NIGHT. PT COMPLIENT WITH 1 L FLUID RESTRICTION. PT REPORTS FEELING BETTER TODAY AND STATES HE DOES NOT FEEL BLOATED IN HIS ABD. 3+ EDEMA TO BLE AND ABD. DENIES N/V AND PAIN. USING HUMIDIFIED O2 PRN. IND IN RM. OOB SEVERAL TIMES.
[2018-09-14 09:21] LABS: Bun/Creatinine Ratio 40.3 (12.0-20.0); Calcium, Blood 8.8 mg/dL (8.5-10.1); Creatinine, Blood 1.44 mg/dL (0.60-1.20); Potassium, Blood 3.5 mmol/L (3.5-5.5)
--- NOTE | 2018-09-14 18:11 | NUR ---
SHIFT SUMMARY PT A&OX4, VSS. DIURESING WELL, COMPLYING W/ ILFR THIS SHIFT, EDU PT ON NOT FOLLOWING FR. AMBULATING HALLWAYS. INDEPENDENT BRP, VOIDING WELL. REFUSED CHAIR TODAY, IN BED WITH BLE ELEVATED. HAWA PO, DENIES N&V. DENIES PAIN. WCTM & TX PER EMAR UNTIL REPORT GIVEN TO ONCSILVANA JALLOH RN.
--- NOTE | 2018-09-15 03:52 | NUR ---
SHIFT SUMMARY: PT IN BED MOST OF SHIFT WITH LEGS ELEVATED. ENCOURAGED TO AMBULATE. IND IN RM. OOB SEVERAL TIMES TO BATHROOM. VOIDING WELL. COMPLIANT WITH 1 L FLUID RESTRICTION. HAWA PO DIET, DENIES N/V. USING O2 PRN. WHEEZING HEARD UPON AUSCULATION. RECIEVING BREATHING TX PRN. WILL WEIGHT PT THIS AM TO TRACK PT STATUS ON FLUID LOSS.
[2018-09-15 04:44] LABS: Hematocrit 45.1 % (37.0-53.0); Hemoglobin 14.2 g/dL (13.5-17.5)
[2018-09-15 04:58] LABS: Albumin, Blood 2.8 g/dL (3.4-5.0); Anion Gap 7 mmol/L (6-16); Blood Urea Nitrogen 50 mg/dL (8-24); Bun/Creatinine Ratio 43.1 (12.0-20.0); CO2, Blood 38 mmol/L (21-32); Calcium, Blood 8.5 mg/dL (8.5-10.1); Chloride, Blood 96 mmol/L (98-108); Creatinine, Blood 1.16 mg/dL (0.60-1.20); Glomerular Filtration Rate >60 (60-); Glucose, Blood 128 mg/dL (70-99); Phosphorus, Blood 3.6 mg/dL (2.5-4.9); Potassium, Blood 3.6 mmol/L (3.5-5.5); Sodium, Blood 141 mmol/L (136-145)
--- NOTE | 2018-09-15 18:35 | NUR ---
SUMMARY NO ACUTE CHANGES THROUGH THE SHIFT. PT WAS ABLE TO HAVE A SMALL TO MEDIUM BM. PT WAS GIVEN SOME PRUNE JUICE. PT IS INDEPENDENT IN ROOM AND CALLS FOR ASSISTANCE PRN. PT EDUCATED ON PURPOSE OF FLUID RESTRICTION. HE ATTEMPTS TO COMPLY. CALL LIGHT IS IN REACH. WCTM
[2018-09-16 03:39] LABS: Creatinine, Urine Random 78.8 mg/dL (27.00-270.00); Protein, Urine Random 15.9 mg/dL (0.0-11.9)
--- NOTE | 2018-09-16 06:03 | NUR ---
SHIFT SUMMARY PT ADMITTED ON 09/15 FOR CHF EXACERBATION. HIS EDEMA HAS IMPROVED OVERALL, THOUGH HE HAS NOT BEEN KEEPING HIS LEGS ELEVATED SO THERE IS SOME DEPENDENT EDEMA. PT IS GENERALLY ADHERING TO HIS FLUID RESTRICTION BUT HE DOES GO OVER FILLING HIS CUP WITH WATER FROM THE SINK, COMPLAINING OF DRY MOUTH. PT HAD A SMALL BM YESTERDAY. PT IS A&O, ABLE TO MAKE NEEDS KNOWN, INDEP IN THE ROOM. HE WALKED THE HALLS LAST NIGHT. BREATHING TX AND 2L HUMIDIFIED O2 VIA NC PRN. WILL CTM UNTIL PASS TO NEXT SHIFT.
[2018-09-16 06:16] LABS: Albumin, Blood 3.1 g/dL (3.4-5.0); Anion Gap 5 mmol/L (6-16); Blood Urea Nitrogen 46 mg/dL (8-24); Bun/Creatinine Ratio 40.7 (12.0-20.0); CO2, Blood 37 mmol/L (21-32); Calcium, Blood 8.6 mg/dL (8.5-10.1); Chloride, Blood 98 mmol/L (98-108); Creatinine, Blood 1.13 mg/dL (0.60-1.20); Glomerular Filtration Rate >60 (60-); Glucose, Blood 136 mg/dL (70-99); Phosphorus, Blood 3.3 mg/dL (2.5-4.9); Potassium, Blood 3.5 mmol/L (3.5-5.5); Sodium, Blood 140 mmol/L (136-145)
--- NOTE | 2018-09-16 11:57 | NUR ---
Spiritual care visit conducted. Patient was in the discharge process when I entered patient's room. I asked about future plans, his current health and his family unit complications. Patient spoke openly about all issues. I listened empathically, provided companionshhip and prayed a blessing over patient as he leaves. Patient responded well and thanked me for the time and care I invested in him.
--- NOTE | 2018-09-16 12:21 | NUR ---
DISCHARGE PT D/C TO HOME WITH FAMILY, ESCORTED TO VEHICLE VIA W/C. VSS, RESP UNLABORED. PT ENCOURAGED TO F/U [facility] FOR ANY PROBLEMS OR CONCERNS. PT HAS ALREADY SCHEDULED A F/U APPOINTMENT WITH PRIMARY CARE & CARDIOLOGY. D/C INSTRUCTIONS & EDUCATION PROVIDED. PT STATES UNDERSTANDING.
== END 2018-09-16 12:21 | disposition home or self-care (01) | DRG 291 ==
LOC: ER 11:57 → SURS 15:24 → ERHOLD 15:24 → SURS 20:36
PROVIDERS: Emergency Medicine; Hospitalist; Internal Medicine; Nurse Practitioner Acute Care; ADMIT Family Medicine
DX: I13.0 Hypertensive heart and chronic kidney disease with heart failure and stage 1 through stage 4 chronic kidney disease, or unspecified chronic kidney disease (principal); I50.43 Acute on chronic combined systolic (congestive) and diastolic (congestive) heart failure; N17.9 Acute kidney failure, unspecified; J44.1 Chronic obstructive pulmonary disease with (acute) exacerbation; I11.0 Hypertensive heart disease with heart failure; N18.2 Chronic kidney disease, stage 2 (mild); E11.22 Type 2 diabetes mellitus with diabetic chronic kidney disease; I48.2 Chronic atrial fibrillation; Z90.5 Acquired absence of kidney; Z87.891 Personal history of nicotine dependence; Z99.81 Dependence on supplemental oxygen; Z79.01 Long term (current) use of anticoagulants; Z79.84 Long term (current) use of oral hypoglycemic drugs; Z79.82 Long term (current) use of aspirin; Z79.899 Other long term (current) drug therapy
CPT/HCPCS: 36415; 71046; 76770; 80048; 80053; 80069; 81003; 82570; 82947; 83735; 83880; 84156; 84484; 85014; 85018; 85025; 87486; 87581; 87633; 87798; 93005; 93010; 94640; 94760; 96374; 96375; 99285-25; J1940; J2405; J2765; P9046

== ENCOUNTER 2018-10-04 22:56 | Emergency (ER) | payer MEDICARE, OTHER ==
[~2018-10-04] VITALS: Ht 182.9 cm; Wt 104.3 kg
[~2018-10-04 22:56] MED LIST changes: +**INCOMPLETE MED REC; +Bisoprolol Fuma10 MG PO; +Flonase 0.05% N16 GM; +Flovent 220 Ora12 GM INH; +LOSA50 PO; +Metformin HCl500 MG PO; +Omeprazole20 M1 PO; +TIOT18 INH; +TORSE20 PO; +XARELTO20 MG PO
[2018-10-04 23:25] LABS: BASOPHILS ABSOLUTE AUTO 0.05 K/mm3 (0.00-0.23); BASOPHILS PERCENT AUTO 1 % (0-2); EOSINOPHILS ABSOLUTE AUTO 0.06 K/mm3 (0.00-0.68); EOSINOPHILS PERCENT AUTO 1 % (0-6); Hematocrit 48.5 % (37.0-53.0); Hemoglobin 15.4 g/dL (13.5-17.5); IMMATURE GRAN ABSOLUTE AUTO 0.02 K/mm3 (0.00-0.10); IMMATURE GRAN PERCENT AUTO 0 % (0-1); LYMPHOCYTES ABSOLUTE AUTO 1.79 K/mm3 (0.84-5.20); LYMPHOCYTES PERCENT AUTO 20 % (21-46); MONOCYTES ABSOLUTE AUTO 1.54 K/mm3 (0.16-1.47); MONOCYTES PERCENT AUTO 17 % (4-13); Mean Corpuscular HGB 29.6 pg (26.0-34.0); Mean Corpuscular HGB Conc 31.8 g/dL (31.5-36.5); Mean Corpuscular Volume 93 fL (80-100); Mean Platelet Volume 9.8 fL (9.1-12.4); NEUTROPHILS ABSOLUTE AUTO 5.48 K/mm3 (1.96-9.15); NEUTROPHILS PERCENT AUTO 61 % (41-73); Platelet Count 298 K/mm3 (150-400); RDW Coefficient Variation 15.9 % (11.7-14.2); RDW Standard Deviation 54.3 fL (35.1-46.3); White Blood Cell Count 8.94 K/mm3 (4.00-11.30)
[2018-10-04 23:43] LABS: Alanine Aminotransfer (ALT/SGP 35 U/L (12-78); Albumin, Blood 3.2 g/dL (3.4-5.0); Albumin/Globulin Ratio 0.8 (0.8-1.8); Alk Phos 128 U/L (50-136); Anion Gap 5 mmol/L (6-16); Aspartate Aminotrans (AST/SGOT 33 U/L (12-37); Bilirubin, Total 1.2 mg/dL (0.1-1.0); Blood Urea Nitrogen 28 mg/dL (8-24); Bun/Creatinine Ratio 25.9 (12.0-20.0); CO2, Blood 36 mmol/L (21-32); Calcium, Blood 8.7 mg/dL (8.5-10.1); Chloride, Blood 98 mmol/L (98-108); Creatinine, Blood 1.08 mg/dL (0.60-1.20); Globulin, Blood 3.8 g/dL (2.2-4.0); Glomerular Filtration Rate >60 (60-); Glucose, Blood 84 mg/dL (70-99); Potassium, Blood 3.9 mmol/L (3.5-5.5); Sodium, Blood 139 mmol/L (136-145)
[2018-10-05 01:06] LABS: Source, Urine Clean Catch
[2018-10-05 01:08] LABS: Appearance, Urine Clear (Clear); Bilirubin, Urine Neg (Neg); Blood, Urine Neg (Neg); Color, Urine Yellow (P-Yellow); Glucose Qualitative, Urine Neg (Neg); Ketones, Urine Neg (Neg); Leukocyte Esterase, Urine Neg (Neg); Nitrite, Urine Neg (Neg); Protein, Urine Neg (Neg); Urobilinogen, Urine NORM (Normal)
[2018-10-05] MEDS ORDERED: Flomax0.4 MG PO (01:58)
== END 2018-10-05 02:37 | disposition home or self-care (01) ==
LOC: ER 22:56
PROVIDERS: Emergency Medicine
DX: R33.9 Retention of urine, unspecified (principal); Z79.899 Other long term (current) drug therapy; Z79.84 Long term (current) use of oral hypoglycemic drugs; I11.0 Hypertensive heart disease with heart failure; I50.9 Heart failure, unspecified; I48.91 Unspecified atrial fibrillation; J44.9 Chronic obstructive pulmonary disease, unspecified; Z87.891 Personal history of nicotine dependence
CPT/HCPCS: 36415; 51798; 80053; 81003; 85025; 99283

== ENCOUNTER 2019-01-03 12:08 | Emergency (ER) | payer MEDICARE, SELFPAY ==
[~2019-01-03] VITALS: Ht 182.9 cm; Wt 88.5 kg
[~2019-01-03 12:08] MED LIST changes: +Flomax0.4 MG PO
[2019-01-03 12:39] LABS: BASOPHILS ABSOLUTE AUTO 0.04 K/mm3 (0.00-0.23); BASOPHILS PERCENT AUTO 1 % (0-2); EOSINOPHILS ABSOLUTE AUTO 0.02 K/mm3 (0.00-0.68); EOSINOPHILS PERCENT AUTO 0 % (0-6); Hematocrit 50.7 % (37.0-53.0); Hemoglobin 16.2 g/dL (13.5-17.5); IMMATURE GRAN ABSOLUTE AUTO 0.01 K/mm3 (0.00-0.10); IMMATURE GRAN PERCENT AUTO 0 % (0-1); LYMPHOCYTES ABSOLUTE AUTO 1.88 K/mm3 (0.84-5.20); LYMPHOCYTES PERCENT AUTO 25 % (21-46); MONOCYTES ABSOLUTE AUTO 0.82 K/mm3 (0.16-1.47); MONOCYTES PERCENT AUTO 11 % (4-13); Mean Corpuscular HGB 30.5 pg (26.0-34.0); Mean Corpuscular Volume 95 fL (80-100); Mean Platelet Volume 10.4 fL (9.1-12.4); NEUTROPHILS ABSOLUTE AUTO 4.87 K/mm3 (1.96-9.15); NEUTROPHILS PERCENT AUTO 64 % (41-73); Platelet Count 209 K/mm3 (150-400); RDW Coefficient Variation 16.9 % (11.7-14.2); RDW Standard Deviation 59.2 fL (35.1-46.3); Red Blood Cell Count 5.32 M/mm3 (4.30-5.90); White Blood Cell Count 7.64 K/mm3 (4.00-11.30)
[2019-01-03 12:46] LABS: International Normalized Ratio 1.21; Prothrombin Time Results 12.6 Sec (9.7-11.5)
[2019-01-03 12:53] LABS: Alanine Aminotransfer (ALT/SGP 27 U/L (12-78); Albumin, Blood 3.7 g/dL (3.4-5.0); Albumin/Globulin Ratio 0.9 (0.8-1.8); Alk Phos 113 U/L (50-136); Anion Gap 3 mmol/L (6-16); Aspartate Aminotrans (AST/SGOT 26 U/L (12-37); Bilirubin, Total 0.8 mg/dL (0.1-1.0); Blood Urea Nitrogen 34 mg/dL (8-24); Bun/Creatinine Ratio 27.6 (12.0-20.0); CO2, Blood 36 mmol/L (21-32); Calcium, Blood 9.2 mg/dL (8.5-10.1); Chloride, Blood 99 mmol/L (98-108); Creatinine, Blood 1.23 mg/dL (0.60-1.20); Globulin, Blood 3.9 g/dL (2.2-4.0); Glomerular Filtration Rate >60 (60-); Glucose, Blood 99 mg/dL (70-99); Potassium, Blood 4.2 mmol/L (3.5-5.5); Sodium, Blood 138 mmol/L (136-145); Total Protein, Blood 7.6 g/dL (6.4-8.2)
[2019-01-03] MEDS ORDERED: DILT60ER PO (12:57)
[2019-01-03] MEDS ORDERED: POTCHL10ER PO (12:59)
[2019-01-03] MEDS ORDERED: ENTRESTO 24 MG1 EACH PO (12:59)
[2019-01-03] MEDS ORDERED: CHOL10002 PO (13:00)
[2019-01-03] MEDS ORDERED: Toprol Xl50 MG PO (13:01)
== END 2019-01-03 13:12 | disposition home or self-care (01) ==
LOC: ER 12:08
PROVIDERS: Physician Assistant
DX: K11.5 Sialolithiasis (principal); J45.909 Unspecified asthma, uncomplicated; I11.0 Hypertensive heart disease with heart failure; I50.9 Heart failure, unspecified; I48.91 Unspecified atrial fibrillation; J44.9 Chronic obstructive pulmonary disease, unspecified; F17.200 Nicotine dependence, unspecified, uncomplicated
CPT/HCPCS: 36415; 80053; 85025; 85610; 99283

== ENCOUNTER → 2020-08-18 | Outpatient (CLI) | payer MEDICARE ==
[~2020-08-18] MED LIST changes: +CHOL10002 PO; +DIGOX250 MCG PO; +ENTRESTO 24 MG1 EACH PO; +POTCHL10ER PO; +Toprol Xl50 MG PO
[2020-08-19 10:50] LABS: C DIFFICILE DNA NEGATIVE (Negative)
== END | disposition home or self-care (01) ==
LOC: LAB 09:00 → LAB SHORT 09:00
PROVIDERS: Student in an Organized Health Care Education/Training Program
DX: R19.7 Diarrhea, unspecified (principal)
CPT/HCPCS: 87015; 87045; 87046; 87205; 87493; 87899

== ENCOUNTER 2020-09-06 06:29 | Day surgery (SDC) | payer MEDICARE, SELFPAY ==
[~2020-09-06] VITALS: Ht 160 cm; Wt 93.0 kg
--- NOTE | 2020-09-06 11:17 | NUR ---
BILAT FEMORAL GROIN SITES SOFT NON-TENDER WITH NO HEMATOMAS, NO PULSATILE BLEEDING AND INTACT DRESSINGS. CALL LIGHT IN REACH.
--- NOTE | 2020-09-06 13:00 | NUR ---
PT DRESSES SELF, WITHOUT DIFF. BILATERAL FEMORAL SITES REMAIN CLEAR. NO BLEEDING OR HEMATOMA NOTED. VSS. NADN. PT DENIES PAIN OR NEEDS. PT AND S/O VERBALIZES UNDERSTANDING WRITTEN AND VERBAL ORDERS. PT IV DC'D. CATH INTACT. PRESSURE DSG APPLIED. PT DC TO HOME VIA S/O BY WC.
== END 2020-09-06 13:00 | disposition home or self-care (01) ==
LOC: MHTC 06:29
DX: I70.213 Atherosclerosis of native arteries of extremities with intermittent claudication, bilateral legs (principal)
CPT/HCPCS: 37221; 37222; 37223; 75625; 75716; 75774; 76937; 82947; 85347; 99152; 99153; C1725; C1760; C1769; C1876; C1887; C1894; J1644; J2250; J3010; J7030; Q9967

== ENCOUNTER → 2021-11-13 | Outpatient (CLI) | payer MEDICARE, OTHER ==
[2021-11-13 17:16] LABS: Albumin, Blood 3.5 g/dL (3.4-5.0); Anion Gap 4 mmol/L (6-16); Blood Urea Nitrogen 20 mg/dL (8-24); Bun/Creatinine Ratio 13.4 (12.0-20.0); CO2, Blood 31 mmol/L (21-32); Calcium, Blood 8.8 mg/dL (8.5-10.1); Chloride, Blood 104 mmol/L (98-108); Creatinine, Blood 1.49 mg/dL (0.60-1.20); Glomerular Filtration Rate 52 (60-); Glucose, Blood 128 mg/dL (70-99); Phosphorus, Blood 2.8 mg/dL (2.5-4.9); Potassium, Blood 4.3 mmol/L (3.5-5.5); Sodium, Blood 139 mmol/L (136-145)
== END | disposition home or self-care (01) ==
LOC: LAB SHORT 13:30 → LAB 13:30
PROVIDERS: Internal Medicine Nephrology
DX: N18.31 Chronic kidney disease, stage 3a (principal)
CPT/HCPCS: 36415; 80069

== ENCOUNTER 2021-11-22 14:12 | Inpatient (IN) | payer MEDICARE ==
[~2021-11-22] VITALS: Ht 182.9 cm; Wt 96.6 kg
[2021-11-22 14:54] LABS: Hematocrit 43.3 % (37.0-53.0); Hemoglobin 14.3 g/dL (13.5-17.5); Mean Corpuscular HGB 31.6 pg (26.0-34.0); Mean Corpuscular Volume 96 fL (80-100); Mean Platelet Volume 9.9 fL (9.1-12.4); Platelet Count 243 K/mm3 (150-400); RDW Coefficient Variation 13.6 % (11.7-14.2); RDW Standard Deviation 48.7 fL (35.1-46.3); Red Blood Cell Count 4.53 M/mm3 (4.30-5.90); White Blood Cell Count 6.84 K/mm3 (4.00-11.30)
[2021-11-22 15:21] LABS: BAND PERCENT MAN 37 % (0-8); BASOPHILS ABSOLUTE MAN 0.06 K/mm3 (0.00-0.23); BASOPHILS PERCENT MAN 1 % (0-2); EOSINOPHILS PERCENT MAN 0 % (0-6); LYMPHOCYTES ABSOLUTE MAN 1.23 K/mm3 (0.84-5.20); LYMPHOCYTES PERCENT MAN 18 % (21-46); MONOCYTES ABSOLUTE MAN 1.23 K/mm3 (0.16-1.47); MONOCYTES PERCENT MAN 18 % (4-13); SEG NEUTROPHILS PERCENT MAN 26 % (41-73); TOTAL CELLS COUNTED 100
[2021-11-22 15:25] LABS: Albumin, Blood 3.1 g/dL (3.4-5.0); Albumin/Globulin Ratio 0.8 (0.8-1.8); Bilirubin, Total 0.9 mg/dL (0.1-1.0); Bun/Creatinine Ratio 23.2 (12.0-20.0); Calcium, Blood 8.9 mg/dL (8.5-10.1); Creatinine, Blood 1.9 mg/dL (0.60-1.20); Globulin, Blood 4.1 g/dL (2.2-4.0); Potassium, Blood 4.4 mmol/L (3.5-5.5); Total Protein, Blood 7.2 g/dL (6.4-8.2)
[2021-11-22 16:44] LABS: Influenza A, PCR NEGATIVE (NEGATIVE); Influenza B, PCR NEGATIVE (NEGATIVE); Resp Syncytial Virus, PCR NEGATIVE (NEGATIVE); SARS-Cov-2 (COVID-19) PCR, MMC NEGATIVE (NEGATIVE)
[2021-11-22 18:34] LABS: Base Excess Venous 2.7 mmol/L; Bicarbonate Venous 24.2 mmol/L (24.0-30.0); PCO2 Venous 65.8 mmHg (38-42)
[2021-11-22 18:35] LABS: pH Blood Venous 7.26 (7.34-7.37)
[2021-11-22] MEDS ORDERED: TRELEGY ELLIPT1 EACH INH (21:15)
[2021-11-22] MEDS ORDERED: FAMO20 PO (21:18)
[2021-11-22] MEDS ORDERED: METF500 PO (22:31)
--- NOTE | 2021-11-22 22:54 | NUR ---
ASSUMED CARE OF PATIENT AT APPROXIMATELY 2100 FROM ED AUGUSTA LOPEZ. PATIENT ALERT AND ORIENTED X4; PATIENT BREATHING IS LABORED, SHORTNESS OF BREATH WITH ANY ACTIVITY; TACHYPNEA. PATIENT REPORTS NUMBNESS AND TINGLING IN LEGS AND RIGHT ARM FROM CHILDHOOD INJURY. PATIENT DENIES CHEST PAIN, PAIN, DIZZINESS, OR NAUSEA. PATIENT ABLE TO AMBULATE FROM ED TO PCU BED WITH VERBAL CUES. PATIENT SBA OUT OF BED. AFIB W/ RATE OF 104; TRENDING DOWN FROM 120'S UPON ARRIVAL; CARDIZEM GTT AT 10ML/HR; OXYGEN SATURATION ABOVE 90% ON 5LPM VIA NC; CURRENTLY REFUSING BIPAP. ADMISSION COMPLETE. CALLED DR. COKER AROUND 2209 TO REPORT PATIENT'S REPEATED COMPLAINT OF BEING HUNGRY; WAS ORDERED NPO; ORDERS FOR ADA DIET. PATIENT HX OF DM; ORDERS FOR AC/HS CBG AND LOW C.S. WITH HUMALOG. PATIENT REPORTS SMOKING 2-3 CIGARETTES; ORDER FOR 21MG NICOTINE PATCH NOW. HISTORIC CLOTHING AND COSTUME MAKER REPORTS ST CHANGES ON TELE IN LEAD TWO; PATIENT REPORTS NO CHEST PAIN; NO NEW ORDERS. PATIENT REQUESTS HOME MEDICATIONS ORDERED; DR. COKER WORKING ON MEDICATIONS. PATIENT ALSO REPORTS UNABLE TO TOLERATE BIPAP MASK; ORDERS FOR 1-2 MG OF IV ATIVAN NEEDED FOR BIPAP USE ONLY.
[2021-11-23 04:47] LABS: Bun/Creatinine Ratio 27.5 (12.0-20.0); Calcium, Blood 8.6 mg/dL (8.5-10.1); Creatinine, Blood 1.53 mg/dL (0.60-1.20)
--- NOTE | 2021-11-23 06:41 | NUR ---
PATIENT SLEPT ABOUT FOUR HOURS LAST NIGHT IN THE RECLINER. OXYGEN TITRATED DOWN TO 3LPM VIA NC; REFUSED BIPAP ALL NIGHT. PATIENT APPEARS TO BE BREATHING BETTER; NOT LABORED. REPORTS FEELING BETTER.
--- NOTE | 2021-11-23 12:03 | NUR ---
Upon receiving a spiritual care referral, I visit pt. Pt tells me about his medical issues and his hopes and concerns moving forward. He talks of the loss of a very dear friend, who just a few days ago and how he is struggling with the grief. He then shares about his coping skills and what inspires and moves him. At the top of the list for strength and stability is his Yazidism/Restoration germaine. I listen empathically, and provide prayer, greif support, and encouraging counsellors. Patient responds well and shows signs of increased peace and an elevated mood.
--- NOTE | 2021-11-23 18:25 | NUR ---
SHIFT SUMMARY PT A/OX4 AND COOPERATIVE OF CARE. PT REMAINED A-FIB WITH RATE 80-110'S THROUGHOUT SHIFT. OTHER VSS THROUGHOUT SHIFT. NO REPORT OF CHEST PAIN/PRESSURE THROUGHOUT SHIFT. PT REPORTED A BRIEF PEROID OF "FEELING FUNNY", DESCRIBED IT "LIKE I AM KIND OF FLYING A LITTLE BIT." PT USED URINAL AT THE BEDSIDE, TOLERATED FAIR. PT ABLE TO TRASNFER SELF TO RECLINER, HR INCREASED TO 140'S BRIEFLY AND RETURNED TO 90'S ALMOST INSTANTLY WHEN AT REST. PT OXYGEN TITRATED TO 2L NC WHICH IS HIS PRN BASELINE AT HOME, SATS REMAIN IN 90'S.
--- NOTE | 2021-11-23 22:03 | NUR ---
CALLED DR. COKER TO REPORT PATIENT'S HEART RATE AVERAGING 120'S; PATIENT DID NOT RECIEVE HOME DOSE OF TOPROL TODAY; ORDERS TO GIVEN HOME DOSE OF TOPROL; PATIENT HAD ASKED EARLIER ABOUT HIS HOME DIURETIC; ASKED DR. COKER WHILE ALREADY ON PHONE CALL AND ORDERS TO RECIEVE HOME DOSE OF TORESEMIDE.
--- NOTE | 2021-11-23 22:17 | NUR ---
PT IS ALERT AND ORIENTED X4. PT WAS SITTING IN CHAIR UPON FIRST INTERACTION AND IS INDEPENDANT. PT'S HR IS AFIB 122'S PER TELE. LUNG SOUNDS ARE DIMINISHED. PT WAS ANXIOUS ABOUT VITAL SIGNS, LABS (KIDNEY FUNCTION), AND NOT HAVING DIURETIC FOR SWOLLEN FEET. DR. COKER WAS CALLED BY RN AND METOPROLOL AND TORESIMIDE WAS ORDERED.
--- NOTE | 2021-11-23 22:46 | NUR ---
DR COKER CALLED AT 0. CALLED ABOUT GETTING A TYLENOL ORDER. RN SUPERVISED AND RECIEVED AND PUT IN THE ORDER.
--- NOTE | 2021-11-23 23:31 | NUR ---
DR COKER CALLED AT 2331 FOR COUGH MEDICINE AND COUGH DROPS FOR PT. RN LISTENED IN ON SPEAKER PHONE AND TOOK ORDER.
--- NOTE | 2021-11-24 03:01 | NUR ---
0220 PT WAS DESATTING TO 85'S. TITRATED O2 UP TO 3L AFTER ASKING CHARGE.
--- NOTE | 2021-11-24 06:02 | NUR ---
PT WOKE TWICE DURING THE NIGHT, BESIDES WHEN TAKING VITALS. PT TOOK OFF NC (SEE PREVIOUS NOTE ABOUT DESATTING TO 85).
[2021-11-24 08:42] LABS: Albumin, Blood 3.3 g/dL (3.4-5.0); Anion Gap 4 mmol/L (6-16); Blood Urea Nitrogen 45 mg/dL (8-24); Bun/Creatinine Ratio 29.2 (12.0-20.0); CO2, Blood 32 mmol/L (21-32); Calcium, Blood 8.8 mg/dL (8.5-10.1); Chloride, Blood 98 mmol/L (98-108); Creatinine, Blood 1.54 mg/dL (0.60-1.20); Glomerular Filtration Rate 50 (60-); Glucose, Blood 151 mg/dL (70-99); Phosphorus, Blood 3.4 mg/dL (2.5-4.9); Potassium, Blood 5.1 mmol/L (3.5-5.5); Sodium, Blood 134 mmol/L (136-145)
--- NOTE | 2021-11-24 10:09 | NUR ---
UPDATE THIS RN ASKED PT IF THERE WERE ANY CONCERNS AT HOME BASED OFF OF A CONVERSATION WITH [facility] NURSE A REFEREAL COMING TO HER. PT STATED THAT HE LIVES AT HOME WITH HIS MOM AND THAT THERE IS "ABSOLUTELY NO CONCERNS". PT WAS CURIOUS OF WHY HE HAS BEEN ASKED, THIS RN INFORMED PT THAT ANYTIME A CONCERN IS PRESENT, THIS RN WILL GO TO THE SOURCE FOR CLARIFICATION. THIS RN ALSO INFORMED PT THAT NO SIGNS OF CONCERNS WERE PRESENT AND THAT I WANTED TO BE SURE TO FOLLOW UP ON IT JUST INCASE HE HAD SOME CONCERNS. PT THANKED THIS RN FOR CHECKING AND REITERATED THAT "NO CONCERNS AT HOME." THIS RN DISCUSSED THIS ENCOUNTER WITH SHELBY.
--- NOTE | 2021-11-24 17:22 | NUR ---
PATIENT ARRIVED ON THE MEDICAL FLOOR FROM U 11 AT 1645. PATIENT CURRENTLY SITTING UP IN BED. HEART RATE AT 109 ON ARRIVAL. PATIENT REQUESTED A BREATHING TREATMENT. RESPIRATORY THERAPY NOTIFIED. NO COVERAGE FOR INSULIN PER SLIDING SCALE NEEDED FOR DINNER. CALL LIGHT WITHIN REACH.
--- NOTE | 2021-11-24 17:45 | NUR ---
TRANSFER UPDATE REPORT GIVEN TO MEDICAL RN AT 1625. PT LEFT UNIT AT 1637 VIA WHEELCHAIR AND ON 2L NC. PT ABLE TO TRANSFER SELF TO AND FROM WHEELCHAIR, TOLERATED WELL. PT BELONGINGS AND MEDS IN BAGS AND WITH PT DURING TRANSFER. PT CHART WITH PT DURING TRANSFER. PT OCCOMPANIED BY LITERATURE PROFESSOR TECH FOR TRANSFER.
--- NOTE | 2021-11-25 03:07 | NUR ---
Patient very agitated due to continuous 02 monitor noise. explained that the alarm was primarily from his heart rate when he would get up to the urinal. At the point that he became very frustrated, patient had pulled off tele and 02 and monitor was constantly ringinig. finally talked patient into putting back 02 and heart monitor if I would turn off the 02/hr monitor (Biox). This was agreed to and 02 and tele were replaced. will continue close monitoring
--- NOTE | 2021-11-25 05:09 | NUR ---
Patient awake all night. No complaints of pain. Very SOB with minimal exertion. Patient very anxious and needs frequent redirection to leave tele on and 02 also. Insisted on having Biox removed as the ringing was "driving him crazy"! The 2nd time he removed tele and , he also pulled out his IV. Tele: A Fib 110-140 during event. Now back to 110's. notified. Order received from hospitalist for ativan. will continue close monitoring.
[2021-11-25 12:16] LABS: BASOPHILS ABSOLUTE AUTO 0.03 K/mm3 (0.00-0.23); BASOPHILS PERCENT AUTO 0 % (0-2); EOSINOPHILS PERCENT AUTO 0 % (0-6); Hematocrit 46.5 % (37.0-53.0); Hemoglobin 14.8 g/dL (13.5-17.5); IMMATURE GRAN PERCENT AUTO 1 % (0-1); LYMPHOCYTES PERCENT AUTO 7 % (21-46); MONOCYTES ABSOLUTE AUTO 0.84 K/mm3 (0.16-1.47); MONOCYTES PERCENT AUTO 8 % (4-13); Mean Corpuscular HGB 31.5 pg (26.0-34.0); Mean Corpuscular HGB Conc 31.8 g/dL (31.5-36.5); Mean Corpuscular Volume 99 fL (80-100); Mean Platelet Volume 9.8 fL (9.1-12.4); NEUTROPHILS ABSOLUTE AUTO 8.76 K/mm3 (1.96-9.15); NEUTROPHILS PERCENT AUTO 84 % (41-73); Platelet Count 275 K/mm3 (150-400); RDW Coefficient Variation 13.7 % (11.7-14.2); RDW Standard Deviation 50.9 fL (35.1-46.3); White Blood Cell Count 10.43 K/mm3 (4.00-11.30)
[2021-11-25 12:34] LABS: Albumin, Blood 3.2 g/dL (3.4-5.0); Anion Gap 4 mmol/L (6-16); Blood Urea Nitrogen 58 mg/dL (8-24); Bun/Creatinine Ratio 35.6 (12.0-20.0); CO2, Blood 34 mmol/L (21-32); Calcium, Blood 8.5 mg/dL (8.5-10.1); Chloride, Blood 101 mmol/L (98-108); Creatinine, Blood 1.63 mg/dL (0.60-1.20); Glomerular Filtration Rate 47 (60-); Glucose, Blood 186 mg/dL (70-99); Phosphorus, Blood 4.1 mg/dL (2.5-4.9); Potassium, Blood 4.9 mmol/L (3.5-5.5); Sodium, Blood 139 mmol/L (136-145)
--- NOTE | 2021-11-25 19:09 | NUR ---
SHIFT SUMMARY PATIENT PLEASANT AND COOPERATIVE WITH CARE. C/O TINGLING/NUMBNESS IN LEFT HAND AND FOOT. INDEPENDENT IN ROOM. ON 3L NC SATING 88-93%. NEEDS REMINDED TO KEEP NC ON. SOB WITH MINIMAL EXERTION. TELE MONITOR READING A-FIB IN THE 100-110. PATIENT ADAMENT HE IS LEAVING TOMORROW. WILL CONTINUE TO MONITOR.
--- NOTE | 2021-11-26 02:57 | NUR ---
AT 2300, PATIENT STARTED GETTING AGITATED AGAIN PULLING OFF TELE AND 02. PATIENT WAS DIFFICULT TO REORIENT THIS TIME HE THOUGHT HE WAS "IN SCHOOL" AND INSISTED ON WALKING OUT INTO THE DONG (WHILE STILL CONNECTED TO THE BIOX) AND ALMOST PULLING IT ONTO THE FLOOR. AFTER EQUIPMENT REPLACED AND PATIENT CALMED DOWN, WAS NOTIFIED AND AN ORDER FOR ATIVAN RECEIVED AND GIVEN. AFTER ONE HOUR, 2ND DOSE OF 0.5MG ATIVAN GIVEN WITH BETTER RESULT. PATIENT CURRENTLY SLEEPING. WILL CONTINUE MONITORING FOR SAFETY
--- NOTE | 2021-11-26 06:15 | NUR ---
After patient received 2nd dose of ativan, he agreed to try to sleep on the bed. This RN checked on him about 30 minutes later, and he was fast asleep. TELE overnight remained A Fib 90's to 120's. At 0550, patient had unplugged the continuous 02 sat, removed nasal cannula and gone to sleep. Luckily, his 02 sat was 90% at that time. lime slaker was informed that we would not be replacing the biox as patient "will not tolerate the alarm any more". 20 minutes later, Tele monitor called to say patient's A Fib was in the 170's. He had removed his 02 to walk to the bathroom. He even turned it off at the wall. Request to dry charge process attendant to move patient to camera room.
[2021-11-26 06:23] LABS: Albumin, Blood 2.9 g/dL (3.4-5.0); Anion Gap 2 mmol/L (6-16); Blood Urea Nitrogen 62 mg/dL (8-24); CO2, Blood 35 mmol/L (21-32); Calcium, Blood 8.6 mg/dL (8.5-10.1); Chloride, Blood 103 mmol/L (98-108); Creatinine, Blood 1.59 mg/dL (0.60-1.20); Glomerular Filtration Rate 48 (60-); Glucose, Blood 176 mg/dL (70-99); Phosphorus, Blood 3.6 mg/dL (2.5-4.9); Potassium, Blood 5.2 mmol/L (3.5-5.5); Sodium, Blood 140 mmol/L (136-145)
--- NOTE | 2021-11-26 12:30 | NUR ---
PT TRANSFERRED TO 346. DR. MENJIVAR AT BEDSIDE, WITH ORDERS FOR DISCHARGE. PT PROGRESSING TOWARDS GOALS. PT IS READY FOR DISCHARGE. EATS LUNCH.
[2021-11-26] MEDS ORDERED: IPRAT-ALBUT 0.5-3 ML INH (13:42)
[2021-11-26] MEDS ORDERED: AZIT250 PO (13:43)
[2021-11-26] MEDS ORDERED: prednisone PO (13:48)
--- NOTE | 2021-11-26 14:12 | NUR ---
discharge instructions reviewed with patient including medications and COPD/CHF. Pt states he has no questions at this time. Signed discharge paperwork placed in pt's chart.
--- NOTE | 2021-11-26 14:33 | NUR ---
fara was discharged, along with all personal belongings, to care of his mother and friend. fara was escroted via WC propelled by RN to private vehicle. No sx of distress, tolerated procedure well.
== END 2021-11-26 14:40 | disposition home or self-care (01) | DRG 189 ==
LOC: ER 14:12 → PCU 18:56 → MEDS 11-24 16:54
PROVIDERS: Internal Medicine; Physician Assistant; Student in an Organized Health Care Education/Training Program; ADMIT Internal Medicine
PROC: 5A09457 Assistance with Respiratory Ventilation, 24-96 Consecutive Hours, Continuous Positive Airway Pressure (ICD-10-PCS; principal; 2021-11-22)
DX: J96.21 Acute and chronic respiratory failure with hypoxia (principal); I50.42 Chronic combined systolic (congestive) and diastolic (congestive) heart failure; I13.0 Hypertensive heart and chronic kidney disease with heart failure and stage 1 through stage 4 chronic kidney disease, or unspecified chronic kidney disease; E87.2 Acidosis; J44.1 Chronic obstructive pulmonary disease with (acute) exacerbation; N17.9 Acute kidney failure, unspecified; I48.20 Chronic atrial fibrillation, unspecified; J96.22 Acute and chronic respiratory failure with hypercapnia; Z20.822 Contact with and (suspected) exposure to COVID-19; E11.22 Type 2 diabetes mellitus with diabetic chronic kidney disease; N18.30 Chronic kidney disease, stage 3 unspecified; F32.A Depression, unspecified; F17.200 Nicotine dependence, unspecified, uncomplicated; J40 Bronchitis, not specified as acute or chronic; Z90.5 Acquired absence of kidney; Z98.890 Other specified postprocedural states; Z88.8 Allergy status to other drugs, medicaments and biological substances; Z79.01 Long term (current) use of anticoagulants; Z79.84 Long term (current) use of oral hypoglycemic drugs; Z79.899 Other long term (current) drug therapy
CPT/HCPCS: 0241U; 36415; 71046; 80048; 80053; 80069; 82803; 82947; 83735; 83880; 84145; 84484; 85025; 93005; 93010; 94640; 94644; 94660; 94664; 94760; 94762; 96365; 96367; 96375; 96376; 99285-25; A9270; J0456; J1160; J2920; J2930; J3475; J7030; J7040; J7050; J7512

== ENCOUNTER 2022-01-11 06:46 | Day surgery (SDC) | payer MEDICARE, OTHER ==
[~2022-01-11] VITALS: Ht 182.9 cm; Wt 98.0 kg
[~2022-01-11 06:46] MED LIST changes: +AZIT250 PO; +FAMO20 PO; +IPRAT-ALBUT 0.5-3 ML INH; +METF500 PO; +TRELEGY ELLIPT1 EACH INH; +prednisone PO
[2022-01-11] MEDS ORDERED: ATOR40TA PO (07:42)
[2022-01-11] MEDS ORDERED: ALBU2.5V5 INH (07:42)
[2022-01-11] MEDS ORDERED: ENTRESTO 24 MG1 EACH PO (07:45)
--- NOTE | 2022-01-11 10:26 | NUR ---
PATIENT RETURNED FROM THE CATHLAB POST CORONARY ANGIOGRAM VIA RFA. MANUAL PRESSURE OBTAINED. RIGHT GROIN STABLE, NO HEMATOMA, NO BLEEDING. HOB FLAT. PATIENT PLACED ON THE MONITOR. CALL LIGHT IN REACH. VVS. NO PAIN, C/O STINGING ONLY AT THE RIGHT GROIN, BUT NO PAIN.
--- NOTE | 2022-01-11 10:34 | NUR ---
GIRLFRIEND AT THE BEDSIDE. PATIENT AWAKE AND CONVERSING WITH FAMILY.
--- NOTE | 2022-01-11 14:39 | NUR ---
PATIENT VERBALIZED UNDERSTANDING OF DISCHARGE INSTRUCTIONS AND PRECAUTIONS. RIGHT GROIN SITE REMAINS SOFT AND NONTENDER, NO HEMATOMA, NO BLEEDING. IV SITE DCED WITH CATHETER INTACT. NO FURTHER QUESTIONS. PATIENT DISCHARGED VIA WHELL CHAIR TO WAITING CAR.
== END 2022-01-11 14:50 | disposition home or self-care (01) ==
LOC: MHTC 06:46
DX: R07.89 Other chest pain (principal); I48.20 Chronic atrial fibrillation, unspecified; I42.9 Cardiomyopathy, unspecified; I27.20 Pulmonary hypertension, unspecified; J44.9 Chronic obstructive pulmonary disease, unspecified; I11.0 Hypertensive heart disease with heart failure; I50.22 Chronic systolic (congestive) heart failure; E11.42 Type 2 diabetes mellitus with diabetic polyneuropathy; Z87.891 Personal history of nicotine dependence; Z88.8 Allergy status to other drugs, medicaments and biological substances; Z79.01 Long term (current) use of anticoagulants; Z79.899 Other long term (current) drug therapy
CPT/HCPCS: 76937; 93454; 99152; 99153; A9270; C1769; C1887; C1894; J1644; J2250; J3010; J7030; J7040; Q9967

== ENCOUNTER 2022-11-14 16:21 | Emergency (ER) | payer MEDICARE, OTHER ==
[~2022-11-14] VITALS: Ht 182.9 cm; Wt 90.7 kg
[~2022-11-14 16:21] MED LIST changes: +ALBU2.5V5 INH; +ATOR40TA PO
[2022-11-14 16:53] VITALS: BP 154/88
== END 2022-11-14 17:40 | disposition home or self-care (01) ==
LOC: ER 16:21
DX: S29.011A Strain of muscle and tendon of front wall of thorax, initial encounter (principal); I50.22 Chronic systolic (congestive) heart failure; J44.9 Chronic obstructive pulmonary disease, unspecified; E11.22 Type 2 diabetes mellitus with diabetic chronic kidney disease; I13.0 Hypertensive heart and chronic kidney disease with heart failure and stage 1 through stage 4 chronic kidney disease, or unspecified chronic kidney disease; N18.30 Chronic kidney disease, stage 3 unspecified; F17.200 Nicotine dependence, unspecified, uncomplicated; X58.XXXA Exposure to other specified factors, initial encounter; Z79.899 Other long term (current) drug therapy; Z79.84 Long term (current) use of oral hypoglycemic drugs; Z79.02 Long term (current) use of antithrombotics/antiplatelets; Z88.8 Allergy status to other drugs, medicaments and biological substances; Z95.810 Presence of automatic (implantable) cardiac defibrillator
CPT/HCPCS: 71046

== ENCOUNTER 2023-01-11 09:33 | Day surgery (SDC) | payer MEDICARE ==
[~2023-01-11] VITALS: Ht 182.9 cm; Wt 84.3 kg
[2023-01-11] MEDS ORDERED: ALBU90OI INH (10:11)
[2023-01-11 10:24] VITALS: BP 110/68
--- NOTE | 2023-01-11 10:37 | NUR ---
Ambulatory in Day Surgery History, Chart, Medications and Allergies reviewed before start of procedure. Pre-Op teaching done. Pt verbalizes understanding. Patient States Post-Procedure ride home has been arranged.
--- NOTE | 2023-01-11 11:49 | NUR ---
01/11/[address] PERSAUD; SEE ANESTHESIA RECORDS.
[2023-01-11 12:25] VITALS: BP 95/62
[2023-01-11 12:35] VITALS: BP 100/60
--- NOTE | 2023-01-11 12:53 | NUR ---
Discharge instructions reviewed with patient. Patient verbalizes understanding. Copy given to patient to take home. Discharged via wheelchair to private car for ride home. PER UNDERSTANDS TO RESTART XARELTO TOMORROW NIGHT PER DR FERREIRA VERBAL ORDER.
== END 2023-01-11 12:54 | disposition home or self-care (01) ==
LOC: ORSCMMR 09:33 → ORSCSDS 11:15 → ORSCMMR 12:54
PROVIDERS: Surgery
PROC: 0DBK8ZX Excision of Ascending Colon, Via Natural or Artificial Opening Endoscopic, Diagnostic (ICD-10-PCS; principal; 2023-01-11 11:15)
DX: Z12.11 Encounter for screening for malignant neoplasm of colon (principal); Z86.010 Personal history of colon polyps; D12.2 Benign neoplasm of ascending colon; J44.9 Chronic obstructive pulmonary disease, unspecified; I10 Essential (primary) hypertension; E11.9 Type 2 diabetes mellitus without complications; I48.92 Unspecified atrial flutter; Z79.899 Other long term (current) drug therapy; Z87.891 Personal history of nicotine dependence
CPT/HCPCS: 82947; 88305; J2704; J7120

== ENCOUNTER 2023-06-14 11:11 | Emergency (ER) | payer MEDICARE, OTHER ==
[~2023-06-14] VITALS: Ht 182.9 cm; Wt 82.1 kg
[2023-06-14 12:12] LABS: BASOPHILS ABSOLUTE AUTO 0.05 K/mm3 (0.00-0.23); BASOPHILS PERCENT AUTO 1 % (0-2); EOSINOPHILS ABSOLUTE AUTO 0.02 K/mm3 (0.00-0.68); EOSINOPHILS PERCENT AUTO 0 % (0-6); Hemoglobin 14.5 g/dL (13.5-17.5); IMMATURE GRAN ABSOLUTE AUTO 0.05 K/mm3 (0.00-0.10); IMMATURE GRAN PERCENT AUTO 1 % (0-1); LYMPHOCYTES ABSOLUTE AUTO 1.45 K/mm3 (0.84-5.20); LYMPHOCYTES PERCENT AUTO 16 % (21-46); MONOCYTES ABSOLUTE AUTO 1.27 K/mm3 (0.16-1.47); MONOCYTES PERCENT AUTO 14 % (4-13); Mean Corpuscular HGB 32.5 pg (26.0-34.0); Mean Corpuscular Volume 99 fL (80-100); Mean Platelet Volume 9.4 fL (9.1-12.4); NEUTROPHILS ABSOLUTE AUTO 6.54 K/mm3 (1.96-9.15); NEUTROPHILS PERCENT AUTO 70 % (41-73); Platelet Count 246 K/mm3 (150-400); RDW Standard Deviation 51.4 fL (35.1-46.3); Red Blood Cell Count 4.46 M/mm3 (4.30-5.90); White Blood Cell Count 9.38 K/mm3 (4.00-11.30)
[2023-06-14 12:28] LABS: Albumin, Blood 2.9 g/dL (3.4-5.0); Albumin/Globulin Ratio 0.8 (0.8-1.8); Bilirubin, Total 0.6 mg/dL (0.1-1.0); Bun/Creatinine Ratio 14.8 (12.0-20.0); Calcium, Blood 9.2 mg/dL (8.5-10.1); Creatinine, Blood 1.35 mg/dL (0.60-1.20); Globulin, Blood 3.8 g/dL (2.2-4.0); Potassium, Blood 4.6 mmol/L (3.5-5.5); Total Protein, Blood 6.7 g/dL (6.4-8.2)
[2023-06-14 12:38] LABS: Influenza A, PCR NEGATIVE (NEGATIVE); Influenza B, PCR NEGATIVE (NEGATIVE); Resp Syncytial Virus, PCR NEGATIVE (NEGATIVE); SARS-Cov-2 (COVID-19) PCR, MMC NEGATIVE (NEGATIVE)
[2023-06-14] MEDS ORDERED: ATORVASTATIN CA80 M1 PO (14:10)
[2023-06-14] MEDS ORDERED: ENTRESTO 49 MG1 EACH PO (14:12)
[2023-06-14] MEDS ORDERED: JARDIANCE10 MG PO (14:12)
[2023-06-14] MEDS ORDERED: Tobrex5 ML BOTHEYES (15:14)
[2023-06-14] MEDS ORDERED: AMOCLA875 PO (15:14)
[2023-06-14 16:00] VITALS: BP 146/88
== END 2023-06-14 16:20 | disposition home or self-care (01) ==
LOC: ER 11:11
PROVIDERS: Physician Assistant
DX: J44.0 Chronic obstructive pulmonary disease with (acute) lower respiratory infection (principal); J20.9 Acute bronchitis, unspecified; J44.1 Chronic obstructive pulmonary disease with (acute) exacerbation; Z99.81 Dependence on supplemental oxygen; H10.023 Other mucopurulent conjunctivitis, bilateral; Z20.822 Contact with and (suspected) exposure to COVID-19; I13.0 Hypertensive heart and chronic kidney disease with heart failure and stage 1 through stage 4 chronic kidney disease, or unspecified chronic kidney disease; I50.22 Chronic systolic (congestive) heart failure; E11.22 Type 2 diabetes mellitus with diabetic chronic kidney disease; N18.30 Chronic kidney disease, stage 3 unspecified; I48.91 Unspecified atrial fibrillation; Z95.0 Presence of cardiac pacemaker; F32.9 Major depressive disorder, single episode, unspecified; F17.200 Nicotine dependence, unspecified, uncomplicated; Z79.84 Long term (current) use of oral hypoglycemic drugs; Z79.51 Long term (current) use of inhaled steroids; Z79.52 Long term (current) use of systemic steroids; Z79.899 Other long term (current) drug therapy; Z88.8 Allergy status to other drugs, medicaments and biological substances
CPT/HCPCS: 0241U; 71046; 80053; 83880; 84484; 85025; 93005; 93010; 94640; 94664; 99285-25; A9270

== ENCOUNTER 2024-06-19 08:15 | Day surgery (SDC) | payer MEDICARE, OTHER ==
[~2024-06-19] VITALS: Ht 182.9 cm; Wt 82.6 kg
[~2024-06-19 08:15] MED LIST changes: +AMOCLA875 PO; +ATORVASTATIN CA80 M1 PO; +Aspir 8181 MG PO; +DELTASONE20 MG; +ENTRESTO 49 MG1 EACH PO; +HYDROCORTISONE; +JARDIANCE10 MG PO; +KETO15TC TOP; +Lactated Ringer's 1,000 ML IV SCH; +METF500C PO; +METO50ER PO; -Metformin HCl500 MG PO; +POTA10T PO; -POTCHL10ER PO; +THERA-D2000 UNIT PO; +TRELEGY ELLIPT1 EACH IH; +Tobrex5 ML BOTHEYES; -Toprol Xl50 MG PO
[2024-06-19] MEDS ORDERED: propofoL 20 ML IV ONE (08:32)
[2024-06-19 09:10] VITALS: BP 108/71
--- NOTE | 2024-06-19 10:12 | NUR ---
06/19/24 1012 Renny Noriega MONITOR INTACT WITH CONTINUOUS PULSE OXIMETRY, CONTINUOUS END TITAL CO2, AND INTERMITTENT BLOOD PRESSURE.AND EKG ANESTHESIA PER JOSE MANUEL DEVELOPMENT EDUCATOR
[2024-06-19 10:40] VITALS: BP 97/60
[2024-06-19 10:50] VITALS: BP 103/69
--- NOTE | 2024-06-19 11:05 | NUR ---
1040 REPORT RECEIVED FROM ISAEL DERAS AND GEORGETTE JACKSON. VSS. PT ON RA. PT ABLE TO REPOSITION SELF IN BED. PT REQUESTING PO FLUIDS AND TOLERATING THEM WELL. PT DENIES PAIN, NAUSEA OR OTHER DISCOMFORTS.
== END 2024-06-19 11:05 | disposition home or self-care (01) ==
LOC: ORSCMMR 08:15 → ORD 10:00 → ORSCMMR 11:05
DX: Z12.11 Encounter for screening for malignant neoplasm of colon (principal); D12.2 Benign neoplasm of ascending colon; D12.4 Benign neoplasm of descending colon; D12.5 Benign neoplasm of sigmoid colon; D12.0 Benign neoplasm of cecum; Z86.0100 Personal history of colon polyps, unspecified; J45.909 Unspecified asthma, uncomplicated; J44.9 Chronic obstructive pulmonary disease, unspecified; I25.10 Atherosclerotic heart disease of native coronary artery without angina pectoris; E11.9 Type 2 diabetes mellitus without complications; I10 Essential (primary) hypertension; Z79.84 Long term (current) use of oral hypoglycemic drugs; Z79.01 Long term (current) use of anticoagulants; Z79.82 Long term (current) use of aspirin; Z79.899 Other long term (current) drug therapy; I42.9 Cardiomyopathy, unspecified; Z95.0 Presence of cardiac pacemaker
CPT/HCPCS: 82947; 88305; J2704; J7120

== ENCOUNTER 2025-03-27 12:06 | Observation (INO) | payer MEDICARE, OTHER ==
[~2025-03-27] VITALS: Ht 182.9 cm; Wt 91.2 kg
[~2025-03-27 12:06] MED LIST changes: -Lactated Ringer's 1,000 ML IV SCH
[2025-03-27 12:42] LABS: BASOPHILS ABSOLUTE AUTO 0.04 K/mm3 (0.00-0.23); BASOPHILS PERCENT AUTO 1 % (0-2); EOSINOPHILS ABSOLUTE AUTO 0.06 K/mm3 (0.00-0.68); EOSINOPHILS PERCENT AUTO 1 % (0-6); Hematocrit 43.8 % (37.0-53.0); Hemoglobin 14.1 g/dL (13.5-17.5); IMMATURE GRAN ABSOLUTE AUTO 0.01 K/mm3 (0.00-0.10); IMMATURE GRAN PERCENT AUTO 0 % (0-1); LYMPHOCYTES ABSOLUTE AUTO 1.44 K/mm3 (0.84-5.20); LYMPHOCYTES PERCENT AUTO 17 % (21-46); MONOCYTES ABSOLUTE AUTO 1.05 K/mm3 (0.16-1.47); MONOCYTES PERCENT AUTO 13 % (4-13); Mean Corpuscular HGB Conc 32.2 g/dL (31.5-36.5); Mean Corpuscular Volume 98 fL (80-100); NEUTROPHILS ABSOLUTE AUTO 5.70 K/mm3 (1.96-9.15); NEUTROPHILS PERCENT AUTO 69 % (41-73); NRBC ABSOLUTE 0.00 K/mm3 (0.00-0.02); NRBC Auto 0.0 /100 WBC (0.0-0.2); Platelet Count 192 K/mm3 (150-400); RDW Coefficient Variation 14.2 % (11.7-14.2); RDW Standard Deviation 52.0 fL (35.1-46.3)
[2025-03-27 13:00] LABS: Alanine Aminotransfer (ALT/SGP 40.0 U/L (12-78); Albumin, Blood 3.5 g/dL (3.4-5.0); Albumin/Globulin Ratio 1.1 (0.8-1.8); Anion Gap 6.0 mmol/L (3-11); Aspartate Aminotrans (AST/SGOT 31.0 U/L (12-37); Bilirubin, Total 1.0 mg/dL (0.1-1.0); Blood Urea Nitrogen 29.0 mg/dL (8-24); CO2, Blood 37.0 mmol/L (21-32); Calcium, Blood 8.8 mg/dL (8.5-10.1); Chloride, Blood 96.0 mmol/L (98-108); Creatinine, Blood 1.65 mg/dL (0.60-1.20); Globulin, Blood 3.3 g/dL (2.2-4.0); Glucose, Blood 105.0 mg/dL (70-99); Potassium, Blood 4.4 mmol/L (3.5-5.5); Sodium, Blood 135.0 mmol/L (136-145); Total Protein, Blood 6.8 g/dL (6.4-8.2)
[2025-03-27] MEDS ORDERED: Proventil HFA 90 mcg INH (16:09)
[2025-03-27] MEDS ORDERED: Ipratropium/Albuterol SulF 2.5-0.5MG/3 ML Amp INH SCH (16:10)
[2025-03-27] MEDS ORDERED: ATORVASTATIN CA80 M1 PO (16:10)
[2025-03-27] MEDS ORDERED: FLU VACC TS2025(65UP)/MF59C/PF 45 MCG/0.5 ML SYRINGE IM SCH (16:10)
[2025-03-27] MEDS ORDERED: BUPR150ER PO (16:11)
[2025-03-27] MEDS ORDERED: DIGOX250 MC1 PO (16:12)
[2025-03-27] MEDS ORDERED: FAMO20 PO (16:13)
[2025-03-27] MEDS ORDERED: Flonase 0.05% Nasal (16:14)
[2025-03-27] MEDS ORDERED: GABA300 PO (16:15)
[2025-03-27] MEDS ORDERED: Iprat-Albut 0.5-3(2. INH (16:17)
[2025-03-27] MEDS ORDERED: METO50ER PO (16:18)
[2025-03-27] MEDS ORDERED: MONT10T PO (16:19)
[2025-03-27] MEDS ORDERED: KLOR-CON 1010 ME1 PO (16:20)
[2025-03-27] MEDS ORDERED: ENTRESTO 49 MG1 EAC2 PO (16:21)
[2025-03-27] MEDS ORDERED: FLOMAX0.4 MG PO (16:21)
[2025-03-27] MEDS ORDERED: TORS10 PO (16:22)
[2025-03-27] MEDS ORDERED: Vitamin D PO (16:24)
[2025-03-27] MEDS ORDERED: XARELTO10 M1 PO (16:28)
[2025-03-27] MEDS ORDERED: Insulin Human Lispro 100 Units/ML 3ML Syringe SC SCH (16:30)
[2025-03-27] MEDS ORDERED: Albuterol HFA200 ACT/6.7 GM INH INH PRN (16:30)
[2025-03-27] MEDS ORDERED: JARDIANCE10 MG PO (16:32)
[2025-03-27] MEDS ORDERED: Torsemide 20 MG TAB PO SCH (17:00)
[2025-03-27 17:33] VITALS: BP 118/72
[2025-03-27] MEDS ORDERED: Prednisone10 MG PO (17:41)
[2025-03-27] MEDS ORDERED: Formoterol/Mometasone MDI 5/100 mcg 13 GM INH SCH (18:55)
[2025-03-27] MEDS ORDERED: Ipratropium Bromide INH 0.02% 0.5 mg/2.5ML Vial INH SCH (19:00)
--- NOTE | 2025-03-27 19:23 | NUR ---
ASSUMED CARE PT ARRIVED A/O X 4 FROM ER NO C/O PAIN NO DISTRESS, SPOUSE AT BEDSIDE. MEDICATION AND ADMISSION DATABASE FINISHED. PT REQUESTED RT TREATMENT, AND IMPLEMENTED. PT IS AMB IN ROOM HAS CALL LIGHT WITHIN REACH AND IS APPROPRIATE WITH CARE.
[2025-03-27 20:47] VITALS: BP 119/87
[2025-03-27] MEDS ORDERED: Sacubitril/Valsartan 49 MG/51 MG Tab PO SCH (21:00)
[2025-03-28 05:20] VITALS: BP 95/59
[2025-03-28 05:44] LABS: BASOPHILS ABSOLUTE AUTO 0.03 K/mm3 (0.00-0.23); BASOPHILS PERCENT AUTO 0 % (0-2); EOSINOPHILS ABSOLUTE AUTO 0.06 K/mm3 (0.00-0.68); EOSINOPHILS PERCENT AUTO 1 % (0-6); Hematocrit 42.5 % (37.0-53.0); Hemoglobin 13.6 g/dL (13.5-17.5); IMMATURE GRAN ABSOLUTE AUTO 0.01 K/mm3 (0.00-0.10); IMMATURE GRAN PERCENT AUTO 0 % (0-1); LYMPHOCYTES ABSOLUTE AUTO 1.50 K/mm3 (0.84-5.20); LYMPHOCYTES PERCENT AUTO 19 % (21-46); MONOCYTES ABSOLUTE AUTO 0.89 K/mm3 (0.16-1.47); MONOCYTES PERCENT AUTO 12 % (4-13); Mean Corpuscular HGB Conc 32.0 g/dL (31.5-36.5); Mean Corpuscular Volume 98 fL (80-100); NEUTROPHILS ABSOLUTE AUTO 5.24 K/mm3 (1.96-9.15); NEUTROPHILS PERCENT AUTO 68 % (41-73); NRBC ABSOLUTE 0.00 K/mm3 (0.00-0.02); NRBC Auto 0.0 /100 WBC (0.0-0.2); Platelet Count 185 K/mm3 (150-400); RDW Coefficient Variation 14.2 % (11.7-14.2); RDW Standard Deviation 51.6 fL (35.1-46.3)
[2025-03-28 06:19] LABS: Alanine Aminotransfer (ALT/SGP 32 U/L (12-78); Albumin, Blood 3.1 g/dL (3.4-5.0); Albumin/Globulin Ratio 1.1 (0.8-1.8); Anion Gap 7 mmol/L (3-11); Aspartate Aminotrans (AST/SGOT 21 U/L (12-37); Bilirubin, Total 1.1 mg/dL (0.1-1.0); Blood Urea Nitrogen 31 mg/dL (8-24); CO2, Blood 37 mmol/L (21-32); Calcium, Blood 8.8 mg/dL (8.5-10.1); Chloride, Blood 98 mmol/L (98-108); Creatinine, Blood 1.74 mg/dL (0.60-1.20); Globulin, Blood 2.9 g/dL (2.2-4.0); Glucose, Blood 100 mg/dL (70-99); Magnesium, Blood 2.1 mg/dL (1.6-2.4); Phosphorus, Blood 4.1 mg/dL (2.5-4.9); Potassium, Blood 3.7 mmol/L (3.5-5.5); Sodium, Blood 138 mmol/L (136-145); Total Protein, Blood 6.0 g/dL (6.4-8.2)
--- NOTE | 2025-03-28 06:46 | NUR ---
SHIFT SUMMARY PT UP AND INDEPENDENT IN ROOM. WATCHING TV AND WALKING AROUND ROOM ADLIB. REMINDED PT OF SAFETY NEEDS. HE EXPRESSED UNDERSTANDING. PT SLEPT SOUNDLY FOR REMAINDER OF SHIFT.
[2025-03-28 08:00] VITALS: BP 118/70
[2025-03-28] MEDS ORDERED: Torsemide 20 MG TAB PO SCH (09:00)
[2025-03-28] MEDS ORDERED: Fluticasone 0.05% Nasal Spray SCH (09:00)
[2025-03-28] MEDS ORDERED: Potassium Chloride 10 Meq Tablet SA PO SCH (09:00)
[2025-03-28] MEDS ORDERED: Cholecalciferol 1000 Unit Tablet (=25MCG) PO SCH (09:00)
--- NOTE | 2025-03-28 10:56 | NUR ---
ASSUMED CARE PT A/O X 4 THIS MORING SITTING UP AT SIDE OF BED. NO C/O PAIN, SOME SOB LUNG SOUNDS WHEEZING, REPIRATORY CARE IN TO SAEE PT.
--- NOTE | 2025-03-28 15:35 | NUR ---
DISCHARGE INSTRUCTIONS GIVEN IV DCED PT TAKEN VIA WHEELCHAIR.
== END 2025-03-28 14:55 | disposition home or self-care (01) ==
LOC: ER 12:06 → MEDS 12:07
PROVIDERS: Student in an Organized Health Care Education/Training Program; ADMIT Family Medicine
DX: I13.0 Hypertensive heart and chronic kidney disease with heart failure and stage 1 through stage 4 chronic kidney disease, or unspecified chronic kidney disease (principal); E11.22 Type 2 diabetes mellitus with diabetic chronic kidney disease; N18.30 Chronic kidney disease, stage 3 unspecified; I50.43 Acute on chronic combined systolic (congestive) and diastolic (congestive) heart failure; I48.19 Other persistent atrial fibrillation; N40.0 Benign prostatic hyperplasia without lower urinary tract symptoms; J44.89 Other specified chronic obstructive pulmonary disease; E11.51 Type 2 diabetes mellitus with diabetic peripheral angiopathy without gangrene; F17.200 Nicotine dependence, unspecified, uncomplicated; Z79.01 Long term (current) use of anticoagulants; Z79.84 Long term (current) use of oral hypoglycemic drugs; Z79.899 Other long term (current) drug therapy; Z88.8 Allergy status to other drugs, medicaments and biological substances; Z95.810 Presence of automatic (implantable) cardiac defibrillator; Z95.820 Peripheral vascular angioplasty status with implants and grafts
CPT/HCPCS: 36415; 71045; 80053; 80162; 82947; 83735; 83880; 84100; 84484; 85025; 93005; 93010; 93306; 94640; 94664; 94760; 96374; 99285-25; A9270; G0378; J1938

== ENCOUNTER 2025-05-12 11:24 | Inpatient (IN) | payer MEDICARE | END 2025-05-15 13:25 | disposition home or self-care (01) | DRG 291 | LOC: ER 11:24 → MEDS 11:25 | PROVIDERS: ADMIT Internal Medicine | DX: I13.0 Hypertensive heart and chronic kidney disease with heart failure and stage 1 through stage 4 chronic kidney disease, or unspecified chronic kidney disease (principal); I50.23 Acute on chronic systolic (congestive) heart failure; I48.19 Other persistent atrial fibrillation; N18.30 Chronic kidney disease, stage 3 unspecified; E11.22 Type 2 diabetes mellitus with diabetic chronic kidney disease; F32.9 Major depressive disorder, single episode, unspecified; J44.89 Other specified chronic obstructive pulmonary disease; N40.0 Benign prostatic hyperplasia without lower urinary tract symptoms; Z90.5 Acquired absence of kidney; Z98.890 Other specified postprocedural states; Z87.891 Personal history of nicotine dependence; Z79.01 Long term (current) use of anticoagulants; Z79.51 Long term (current) use of inhaled steroids; Z79.84 Long term (current) use of oral hypoglycemic drugs; Z79.899 Other long term (current) drug therapy; Z88.8 Allergy status to other drugs, medicaments and biological substances ==

== ENCOUNTER 2025-05-23 13:51 | Emergency (ER) | payer MEDICARE, OTHER ==
[~2025-05-23] VITALS: Ht 182.9 cm; Wt 93.0 kg
[~2025-05-23 13:51] MED LIST changes: +BUME1 PO; +DIGOX250 MC1 PO; +ENTRESTO 49 MG1 EAC2 PO; +FLOMAX0.4 MG PO; +Flonase 0.05% Nasal; +Iprat-Albut 0.5-3(2. INH; +KLOR-CON 1010 ME1 PO; +Prednisone10 MG PO; +Proventil HFA 90 mcg INH; +TAMS.4ER PO; +TORS10 PO; -TRELEGY ELLIPT1 EACH IH; +Vitamin D PO; +XARELTO10 M1 PO
[2025-05-23 14:28] LABS: BASOPHILS ABSOLUTE AUTO 0.04 K/mm3 (0.00-0.23); BASOPHILS PERCENT AUTO 1 % (0-2); EOSINOPHILS ABSOLUTE AUTO 0.04 K/mm3 (0.00-0.68); EOSINOPHILS PERCENT AUTO 1 % (0-6); Hematocrit 42.8 % (37.0-53.0); Hemoglobin 13.5 g/dL (13.5-17.5); IMMATURE GRAN ABSOLUTE AUTO 0.01 K/mm3 (0.00-0.10); IMMATURE GRAN PERCENT AUTO 0 % (0-1); LYMPHOCYTES ABSOLUTE AUTO 1.35 K/mm3 (0.84-5.20); LYMPHOCYTES PERCENT AUTO 18 % (21-46); MONOCYTES ABSOLUTE AUTO 0.99 K/mm3 (0.16-1.47); MONOCYTES PERCENT AUTO 13 % (4-13); Mean Corpuscular HGB Conc 31.5 g/dL (31.5-36.5); Mean Corpuscular Volume 96 fL (80-100); NEUTROPHILS ABSOLUTE AUTO 5.07 K/mm3 (1.96-9.15); NEUTROPHILS PERCENT AUTO 68 % (41-73); NRBC ABSOLUTE 0.00 K/mm3 (0.00-0.02); NRBC Auto 0.0 /100 WBC (0.0-0.2); Platelet Count 164 K/mm3 (150-400); RDW Coefficient Variation 14.8 % (11.7-14.2); RDW Standard Deviation 52.2 fL (35.1-46.3)
[2025-05-23 14:52] LABS: Alanine Aminotransfer (ALT/SGP 34.0 U/L (12-78); Albumin, Blood 3.6 g/dL (3.4-5.0); Albumin/Globulin Ratio 1.1 (0.8-1.8); Anion Gap 7.0 mmol/L (3-11); Aspartate Aminotrans (AST/SGOT 27.0 U/L (12-37); Bilirubin, Total 1.0 mg/dL (0.1-1.0); Blood Urea Nitrogen 23.0 mg/dL (8-24); CO2, Blood 31.0 mmol/L (21-32); Calcium, Blood 8.7 mg/dL (8.5-10.1); Chloride, Blood 102.0 mmol/L (98-108); Creatinine, Blood 1.71 mg/dL (0.60-1.20); Globulin, Blood 3.3 g/dL (2.2-4.0); Glucose, Blood 100.0 mg/dL (70-99); Potassium, Blood 4.5 mmol/L (3.5-5.5); Sodium, Blood 135.0 mmol/L (136-145); Total Protein, Blood 6.9 g/dL (6.4-8.2)
[2025-05-23] MEDS ORDERED: CEPH500 PO (17:22)
[2025-05-23 17:44] VITALS: BP 118/76
== END 2025-05-23 17:45 | disposition home or self-care (01) ==
LOC: ER 13:51
PROVIDERS: Physician Assistant
DX: L03.115 Cellulitis of right lower limb (principal); I12.9 Hypertensive chronic kidney disease with stage 1 through stage 4 chronic kidney disease, or unspecified chronic kidney disease; E11.22 Type 2 diabetes mellitus with diabetic chronic kidney disease; I50.22 Chronic systolic (congestive) heart failure; N18.30 Chronic kidney disease, stage 3 unspecified; Z79.01 Long term (current) use of anticoagulants; Z79.899 Other long term (current) drug therapy; J45.909 Unspecified asthma, uncomplicated; F17.200 Nicotine dependence, unspecified, uncomplicated
CPT/HCPCS: 80053; 85025; 93971; 99284-25; A9270; J1938

== ENCOUNTER 2025-05-30 10:28 | Emergency (ER) | payer MEDICARE, OTHER ==
[~2025-05-30] VITALS: Ht 172.7 cm; Wt 81.7 kg
[2025-05-30 11:38] LABS: BASOPHILS ABSOLUTE AUTO 0.02 K/mm3 (0.00-0.23); BASOPHILS PERCENT AUTO 0 % (0-2); EOSINOPHILS ABSOLUTE AUTO 0.03 K/mm3 (0.00-0.68); EOSINOPHILS PERCENT AUTO 0 % (0-6); Hematocrit 41.8 % (37.0-53.0); Hemoglobin 13.2 g/dL (13.5-17.5); IMMATURE GRAN ABSOLUTE AUTO 0.01 K/mm3 (0.00-0.10); IMMATURE GRAN PERCENT AUTO 0 % (0-1); LYMPHOCYTES ABSOLUTE AUTO 1.04 K/mm3 (0.84-5.20); LYMPHOCYTES PERCENT AUTO 15 % (21-46); MONOCYTES ABSOLUTE AUTO 0.78 K/mm3 (0.16-1.47); MONOCYTES PERCENT AUTO 11 % (4-13); Mean Corpuscular HGB Conc 31.6 g/dL (31.5-36.5); Mean Corpuscular Volume 97 fL (80-100); NEUTROPHILS ABSOLUTE AUTO 5.08 K/mm3 (1.96-9.15); NEUTROPHILS PERCENT AUTO 73 % (41-73); NRBC ABSOLUTE 0.00 K/mm3 (0.00-0.02); NRBC Auto 0.0 /100 WBC (0.0-0.2); Platelet Count 174 K/mm3 (150-400); RDW Coefficient Variation 15.2 % (11.7-14.2); RDW Standard Deviation 53.5 fL (35.1-46.3)
[2025-05-30 12:08] LABS: C-REACTIVE PROTEIN, EXT RANGE 0.738 mg/dL (0.000-0.300)
[2025-05-30 12:09] LABS: Alanine Aminotransfer (ALT/SGP 38.0 U/L (12-78); Albumin, Blood 3.5 g/dL (3.4-5.0); Albumin/Globulin Ratio 1.0 (0.8-1.8); Anion Gap 7.0 mmol/L (3-11); Aspartate Aminotrans (AST/SGOT 33.0 U/L (12-37); Bilirubin, Total 1.0 mg/dL (0.1-1.0); Blood Urea Nitrogen 33.0 mg/dL (8-24); CO2, Blood 38.0 mmol/L (21-32); Calcium, Blood 8.6 mg/dL (8.5-10.1); Chloride, Blood 96.0 mmol/L (98-108); Creatinine, Blood 2.04 mg/dL (0.60-1.20); Globulin, Blood 3.4 g/dL (2.2-4.0); Glucose, Blood 97.0 mg/dL (70-99); Potassium, Blood 4.3 mmol/L (3.5-5.5); Sodium, Blood 137.0 mmol/L (136-145); Total Protein, Blood 6.9 g/dL (6.4-8.2)
[2025-05-30] MEDS ORDERED: ALBU8HFA2 (12:27)
[2025-05-30 14:23] VITALS: BP 121/79
[2025-05-30] MEDS ORDERED: AMOCLA875 PO (14:26)
[2025-05-30] MEDS ORDERED: Bactrim Ds Tab1 EACH PO (14:26)
== END 2025-05-30 14:51 | disposition home or self-care (01) ==
LOC: ER 10:28
PROVIDERS: Emergency Medicine
DX: L03.115 Cellulitis of right lower limb (principal); I13.0 Hypertensive heart and chronic kidney disease with heart failure and stage 1 through stage 4 chronic kidney disease, or unspecified chronic kidney disease; I50.22 Chronic systolic (congestive) heart failure; E11.22 Type 2 diabetes mellitus with diabetic chronic kidney disease; N18.30 Chronic kidney disease, stage 3 unspecified; I48.19 Other persistent atrial fibrillation; J44.89 Other specified chronic obstructive pulmonary disease; F17.200 Nicotine dependence, unspecified, uncomplicated; Z95.810 Presence of automatic (implantable) cardiac defibrillator; Z88.8 Allergy status to other drugs, medicaments and biological substances; Z79.01 Long term (current) use of anticoagulants; Z79.84 Long term (current) use of oral hypoglycemic drugs; Z79.899 Other long term (current) drug therapy
CPT/HCPCS: 73701; 80053; 85025; 85651; 86140; 93005; 93010; 99284-25; Q9967

== ENCOUNTER 2025-06-09 09:37 | Inpatient (IN) | payer MEDICARE ==
[~2025-06-09] VITALS: Ht 172.7 cm; Wt 92.9 kg
[~2025-06-09 09:37] MED LIST changes: +ALBU8HFA2; +Bactrim Ds Tab1 EACH PO
[2025-06-09] MEDS ORDERED: Morphine Sulfate 4 MG/1 ML Injection IV ONE ×2 (10:50→13:45)
[2025-06-09 11:17] LABS: BASOPHILS ABSOLUTE AUTO 0.05 K/mm3 (0.00-0.23); BASOPHILS PERCENT AUTO 1 % (0-2); EOSINOPHILS ABSOLUTE AUTO 0.18 K/mm3 (0.00-0.68); EOSINOPHILS PERCENT AUTO 2 % (0-6); Hematocrit 40.6 % (37.0-53.0); Hemoglobin 12.6 g/dL (13.5-17.5); IMMATURE GRAN ABSOLUTE AUTO 0.02 K/mm3 (0.00-0.10); IMMATURE GRAN PERCENT AUTO 0 % (0-1); LYMPHOCYTES ABSOLUTE AUTO 1.16 K/mm3 (0.84-5.20); LYMPHOCYTES PERCENT AUTO 15 % (21-46); MONOCYTES ABSOLUTE AUTO 0.89 K/mm3 (0.16-1.47); MONOCYTES PERCENT AUTO 11 % (4-13); Mean Corpuscular HGB Conc 31.0 g/dL (31.5-36.5); Mean Corpuscular Volume 96 fL (80-100); NEUTROPHILS ABSOLUTE AUTO 5.60 K/mm3 (1.96-9.15); NEUTROPHILS PERCENT AUTO 71 % (41-73); NRBC ABSOLUTE 0.00 K/mm3 (0.00-0.02); NRBC Auto 0.0 /100 WBC (0.0-0.2); Platelet Count 231 K/mm3 (150-400); RDW Coefficient Variation 16.0 % (11.7-14.2); RDW Standard Deviation 56.2 fL (35.1-46.3)
[2025-06-09 11:32] LABS: C-REACTIVE PROTEIN, EXT RANGE 1.61 mg/dL (0.000-0.300)
[2025-06-09 11:34] LABS: Alanine Aminotransfer (ALT/SGP 30.0 U/L (12-78); Albumin, Blood 3.3 g/dL (3.4-5.0); Albumin/Globulin Ratio 0.9 (0.8-1.8); Anion Gap 5.0 mmol/L (3-11); Aspartate Aminotrans (AST/SGOT 26.0 U/L (12-37); Bilirubin, Total 0.4 mg/dL (0.1-1.0); Blood Urea Nitrogen 40.0 mg/dL (8-24); CO2, Blood 34.0 mmol/L (21-32); Calcium, Blood 9.1 mg/dL (8.5-10.1); Chloride, Blood 99.0 mmol/L (98-108); Creatinine, Blood 2.25 mg/dL (0.60-1.20); Globulin, Blood 3.7 g/dL (2.2-4.0); Glucose, Blood 87.0 mg/dL (70-99); Potassium, Blood 5.8 mmol/L (3.5-5.5); Sodium, Blood 132.0 mmol/L (136-145); Total Protein, Blood 7.0 g/dL (6.4-8.2)
[2025-06-09] MEDS ORDERED: CefTRIAXone Sodium 1,000 MG in NS 50 ML IV ONE (13:35)
[2025-06-09] MEDS ORDERED: NS 250 ML IV SCH (13:35)
[2025-06-09] MEDS ORDERED: FLU VACC TS2025(65UP)/MF59C/PF 45 MCG/0.5 ML SYRINGE IM SCH (14:25)
[2025-06-09 15:24] LABS: Calcium, Ionized (POC) 1.18 mmol/L (1.10-1.46); Chloride (POC) 96 mmol/L (98-108); Creatinine (POC) 2.2 mg/dL (0.8-1.3); Glucose (ISTAT POC) 103 mg/dL (70-99); Hematocrit (POC) 45.0 % (41.0-53.0); Hemoglobin (POC) 15.3 g/dL (13.5-17.5); Potassium (POC) 6.4 mmol/L (3.5-5.5); Sodium (POC) 134 mmol/L (135-148); Total CO2 (POC) 27 mmol/L (21-32)
[2025-06-09] MEDS ORDERED: Sodium Bicarb 8.4% 1 MEQ/ML 50 ML Vial IV ONE (16:10)
[2025-06-09] MEDS ORDERED: Insulin Regular 100 Unit/ML 1ML Dose IV ONE (16:10)
[2025-06-09] MEDS ORDERED: Albuterol 2.5 MG/3 ML VIAL INH SCH (16:10)
[2025-06-09] MEDS ORDERED: CALCIUM GLUC IN NACL, ISO-OSM 50 ML IV ONE (16:15)
[2025-06-09] MEDS ORDERED: Insulin Human Lispro 100 Units/ML 3ML Syringe SC SCH (16:30)
[2025-06-09 18:23] VITALS: BP 130/77
[2025-06-09] MEDS ORDERED: Tiotropium Bromide 2.5 MCG/ACT MIST INHAL (10 ACT/4 GM) INH SCH (19:45)
[2025-06-09] MEDS ORDERED: Albuterol 2.5 MG/3 ML VIAL INH PRN (19:50)
[2025-06-09 19:53] VITALS: BP 127/79
[2025-06-09] MEDS ORDERED: Formoterol/Mometasone MDI 5/200 mcg 13 GM INH SCH (19:55)
[2025-06-09] MEDS ORDERED: Lactobacil 2-S.Thermo-Bifido 1 1 Cap PO SCH (21:00)
[2025-06-09 21:22] LABS: Anion Gap 6.0 mmol/L (3-11); Blood Urea Nitrogen 41.0 mg/dL (8-24); CO2, Blood 34.0 mmol/L (21-32); Calcium, Blood 9.3 mg/dL (8.5-10.1); Chloride, Blood 98.0 mmol/L (98-108); Creatinine, Blood 2.25 mg/dL (0.60-1.20); Glucose, Blood 111.0 mg/dL (70-99); Potassium, Blood 5.4 mmol/L (3.5-5.5); Sodium, Blood 133.0 mmol/L (136-145)
[2025-06-10 00:05] VITALS: BP 130/82
[2025-06-10 03:50] VITALS: BP 98/56
[2025-06-10 04:05] LABS: BASOPHILS ABSOLUTE AUTO 0.06 K/mm3 (0.00-0.23); BASOPHILS PERCENT AUTO 1 % (0-2); EOSINOPHILS ABSOLUTE AUTO 0.20 K/mm3 (0.00-0.68); EOSINOPHILS PERCENT AUTO 3 % (0-6); Hematocrit 38.7 % (37.0-53.0); Hemoglobin 12.0 g/dL (13.5-17.5); IMMATURE GRAN ABSOLUTE AUTO 0.02 K/mm3 (0.00-0.10); IMMATURE GRAN PERCENT AUTO 0 % (0-1); LYMPHOCYTES ABSOLUTE AUTO 1.37 K/mm3 (0.84-5.20); LYMPHOCYTES PERCENT AUTO 19 % (21-46); MONOCYTES ABSOLUTE AUTO 0.81 K/mm3 (0.16-1.47); MONOCYTES PERCENT AUTO 11 % (4-13); Mean Corpuscular HGB Conc 31.0 g/dL (31.5-36.5); Mean Corpuscular Volume 97 fL (80-100); NEUTROPHILS ABSOLUTE AUTO 4.77 K/mm3 (1.96-9.15); NEUTROPHILS PERCENT AUTO 66 % (41-73); NRBC ABSOLUTE 0.00 K/mm3 (0.00-0.02); NRBC Auto 0.0 /100 WBC (0.0-0.2); Platelet Count 229 K/mm3 (150-400); RDW Coefficient Variation 16.0 % (11.7-14.2); RDW Standard Deviation 56.3 fL (35.1-46.3)
[2025-06-10 04:27] LABS: Anion Gap 9.0 mmol/L (3-11); Blood Urea Nitrogen 39.0 mg/dL (8-24); CO2, Blood 30.0 mmol/L (21-32); Calcium, Blood 8.8 mg/dL (8.5-10.1); Chloride, Blood 99.0 mmol/L (98-108); Creatinine, Blood 2.27 mg/dL (0.60-1.20); Glucose, Blood 97.0 mg/dL (70-99); Potassium, Blood 5.9 mmol/L (3.5-5.5); Sodium, Blood 132.0 mmol/L (136-145)
--- NOTE | 2025-06-10 04:38 | NUR ---
SHIFT SUMMARY:: PT ALERT ORIENTED X 4 ABLE TO VERBALIZE NEEDS GETS UP IN ROOM AND AMBULATES AD HAYES. NO C/ O PAIN THIS SHIFT. TOLERATES A CC DIET. TAKES MEDS WHOLE WITH WATER. HIS POTASSIUM LEVELS REMAIN HIGH. LAST NIGHT AT 1999 IT WAS 5.4 AND THIS AM ITS 5.9. REMAINS ON ROCEPHIN QDAY FOR CELLULITIS TO HIS RIGHT LEG. LEG REMAINS RED WITH SWELLING AND WARM TO TOUCH. REMAINS ON TELEMETRY AT AFIB IN THE 70 S-90 S. HE HAD A SOFT BP THIS AM OF 98/56. REMAINS ON RA-2L VIA NC. HE STATED THAT HE WEARS 3L AT HOME. FS DONE AC AND HS WAS 117. BED IN LOWEST POSITION. CALL LIGHT IN REACH. CALLS APPROPRIATELY.
--- NOTE | 2025-06-10 05:20 | NUR ---
CALLED DR. HAMMOND AND INFORMED HIM OF PTS POTASSIUM BEING AT 5.9 THIS MORNING.
[2025-06-10] MEDS ORDERED: Insulin Regular 100 UNIT/ML 10ML Vial IV ONE (05:45)
[2025-06-10 08:36] VITALS: BP 113/69
[2025-06-10] MEDS ORDERED: Enoxaparin 40 MG/0.4 ML SYR SC SCH (09:00)
[2025-06-10] MEDS ORDERED: CefTRIAXone Sodium 1,000 MG in NS 100 ML IV SCH (12:00)
[2025-06-10 12:12] VITALS: BP 129/68
[2025-06-10] MEDS ORDERED: Ipratropium/Albuterol SulF 2.5-0.5MG/3 ML Amp INH PRN (14:20)
[2025-06-10 17:05] VITALS: BP 118/80
--- NOTE | 2025-06-10 17:10 | NUR ---
Transfer to Medical Pt A&O x4. Independent in rm. VSS. Spo2 > 92% on RA w/ pt report of 3L NC at home while sleeping. Monitor showing afib, HR 70s-90s. Pt made medical w/ telemetry status by . Pt w/ c/o headache today, medicated w/ PRN tylenol per eMAR w/ pt report of headache then "gone". Pt w/ pitting edema R outer thigh. RLE from knee down red. Report given to accepting medical floor RN assuming care of pt. Pt taken to rm 361 by wheelchair w/ belongings.
--- NOTE | 2025-06-10 17:13 | NUR ---
TRANSFER NOTE: PATIENT ARRIVED TO THE UNIT VIA WHEELCHAIR. HE IS ALERT, WAS ABLE TO SELF TRANSFER INTO THE ROOM. HIS LINES WERE ASSESSED; PATENT. SETTLED IN ROOM, CALL LIGHT PROVIDED, AND HIS DINNER. RT IN THERE NOW GIVING MEDS. NO SIGNS OR SYMPTOMS OF DISTRESS, PLAN OF CARE ONGOING.
[2025-06-10 20:37] VITALS: BP 127/74
[2025-06-10] MEDS ORDERED: Sacubitril/Valsartan 49 MG/51 MG Tab PO SCH (21:00)
[2025-06-11 00:07] VITALS: BP 123/95
[2025-06-11 03:41] VITALS: BP 112/77
[2025-06-11 04:51] LABS: BASOPHILS ABSOLUTE AUTO 0.09 K/mm3 (0.00-0.23); BASOPHILS PERCENT AUTO 1 % (0-2); EOSINOPHILS ABSOLUTE AUTO 0.24 K/mm3 (0.00-0.68); EOSINOPHILS PERCENT AUTO 3 % (0-6); Hematocrit 37.4 % (37.0-53.0); Hemoglobin 11.8 g/dL (13.5-17.5); IMMATURE GRAN ABSOLUTE AUTO 0.01 K/mm3 (0.00-0.10); IMMATURE GRAN PERCENT AUTO 0 % (0-1); LYMPHOCYTES ABSOLUTE AUTO 1.12 K/mm3 (0.84-5.20); LYMPHOCYTES PERCENT AUTO 14 % (21-46); MONOCYTES ABSOLUTE AUTO 1.08 K/mm3 (0.16-1.47); MONOCYTES PERCENT AUTO 13 % (4-13); Mean Corpuscular HGB Conc 31.6 g/dL (31.5-36.5); Mean Corpuscular Volume 97 fL (80-100); NEUTROPHILS ABSOLUTE AUTO 5.68 K/mm3 (1.96-9.15); NEUTROPHILS PERCENT AUTO 69 % (41-73); NRBC ABSOLUTE 0.00 K/mm3 (0.00-0.02); NRBC Auto 0.0 /100 WBC (0.0-0.2); Platelet Count 215 K/mm3 (150-400); RDW Coefficient Variation 15.9 % (11.7-14.2); RDW Standard Deviation 56.1 fL (35.1-46.3)
[2025-06-11 05:17] LABS: Anion Gap 7.0 mmol/L (3-11); Blood Urea Nitrogen 35.0 mg/dL (8-24); CO2, Blood 31.0 mmol/L (21-32); Calcium, Blood 8.9 mg/dL (8.5-10.1); Chloride, Blood 99.0 mmol/L (98-108); Creatinine, Blood 1.96 mg/dL (0.60-1.20); Glucose, Blood 104.0 mg/dL (70-99); Potassium, Blood 5.3 mmol/L (3.5-5.5); Sodium, Blood 132.0 mmol/L (136-145)
[2025-06-11 07:14] VITALS: BP 107/78
--- NOTE | 2025-06-11 07:38 | NUR ---
A/Ox4, FORGETFUL AT TIMES. AFIB/V-PACED RHYTHM, HR 100-110s, OTHER VSS ON RA. PT REPORTS 7/10 RLE PAIN, MANAGED WITH PRN TYLENOL. UP AD HAYES IN ROOM. NO ACUTE CHANGES OVERNIGHT. BED IN LOWEST POSITION, CALL LIGHT IN REACH.
[2025-06-11] MEDS ORDERED: Torsemide 20 MG TAB PO SCH (09:00)
[2025-06-11] MEDS ORDERED: Fluticasone 0.05% Nasal Spray SCH (09:00)
[2025-06-11] MEDS ORDERED: Potassium Chloride 10 Meq Tablet SA PO SCH (09:00)
--- NOTE | 2025-06-11 09:10 | NUR ---
CALLED DR. HELMS TO CLARIFY ORAL POTASSIUM ORDER; PATIENT HAS BEEN HYPERKALEMIC.
[2025-06-11] MEDS ORDERED: CEFTRIAXONE1 GM IV (10:55)
[2025-06-11] MEDS ORDERED: VISBIOME 112.51 EACH PO (10:56)
[2025-06-11] MEDS ORDERED: Ketorolac Tromethamine 15mg Vial IV ONE (11:00)
[2025-06-11 11:27] VITALS: BP 113/73
--- NOTE | 2025-06-11 13:45 | NUR ---
DISCHARGE NOTE: WENT OVER DISCHARGE WITH THE PATIENT. HE WAS ALREADY DRESSED AND BELONGINGS COLLECTED. SENDING HOME WITH ULICES JOHNSON INTACT FOR ANNIE INFUSIONS FOR X7 DAYS. PATIENT WHEELED DOWN BY MODELING AGENCY MANAGER. NO SIGNS OR SYMPTOMS OF DISTRESS DURING DISCHARGE.
== END 2025-06-11 13:50 | disposition home or self-care (01) | DRG 603 ==
LOC: ER 09:37 → MEDS 09:38 → PCU 09:38 → MEDS 06-10 17:12
PROVIDERS: Student in an Organized Health Care Education/Training Program; ADMIT Family Medicine
DX: L03.115 Cellulitis of right lower limb (principal); N17.9 Acute kidney failure, unspecified; I13.0 Hypertensive heart and chronic kidney disease with heart failure and stage 1 through stage 4 chronic kidney disease, or unspecified chronic kidney disease; I50.22 Chronic systolic (congestive) heart failure; I48.19 Other persistent atrial fibrillation; E87.1 Hypo-osmolality and hyponatremia; J44.9 Chronic obstructive pulmonary disease, unspecified; E11.22 Type 2 diabetes mellitus with diabetic chronic kidney disease; N18.31 Chronic kidney disease, stage 3a; F32.9 Major depressive disorder, single episode, unspecified; E87.5 Hyperkalemia; N40.0 Benign prostatic hyperplasia without lower urinary tract symptoms; Z88.8 Allergy status to other drugs, medicaments and biological substances; Z79.899 Other long term (current) drug therapy; Z79.51 Long term (current) use of inhaled steroids
CPT/HCPCS: 36415; 80047; 80048; 80053; 82570; 82947; 83930; 83935; 84132; 84300; 85014; 85025; 85651; 86140; 93005; 93010; 93971; 94640; 94664; 94760; 94762; 96365; 96367; 96375; 96376; 99285-25; A9270; G0378; J0612; J0696; J1815; J1885; J2270; J7030

== ENCOUNTER 2025-06-14 00:41 | Day surgery (SDC) | payer MEDICARE ==
[~2025-06-14 00:41] MED LIST changes: +CEFTRIAXONE1 GM IV; +CefTRIAXone Sodium 1,000 MG in NS 100 ML IV SCH; +VISBIOME 112.51 EACH PO
[2025-06-14 13:25] VITALS: BP 104/58
== END 2025-06-14 13:55 | disposition home or self-care (01) ==
LOC: ATC 00:41
DX: L03.115 Cellulitis of right lower limb (principal); I13.0 Hypertensive heart and chronic kidney disease with heart failure and stage 1 through stage 4 chronic kidney disease, or unspecified chronic kidney disease; E11.22 Type 2 diabetes mellitus with diabetic chronic kidney disease; N18.31 Chronic kidney disease, stage 3a; I50.22 Chronic systolic (congestive) heart failure; I48.19 Other persistent atrial fibrillation; J44.9 Chronic obstructive pulmonary disease, unspecified; F32.9 Major depressive disorder, single episode, unspecified; N40.0 Benign prostatic hyperplasia without lower urinary tract symptoms; F17.200 Nicotine dependence, unspecified, uncomplicated; Z79.899 Other long term (current) drug therapy; Z88.8 Allergy status to other drugs, medicaments and biological substances; Z95.0 Presence of cardiac pacemaker
CPT/HCPCS: 96365; 99211; J0696

== ENCOUNTER 2025-06-15 00:14 | Day surgery (SDC) | payer MEDICARE ==
[~2025-06-15 00:14] MED LIST changes: -CefTRIAXone Sodium 1,000 MG in NS 100 ML IV SCH
[2025-06-15] MEDS ORDERED: CefTRIAXone Sodium 1,000 MG in NS 100 ML IV SCH (06:00)
[2025-06-15 14:01] VITALS: BP 111/69
[2025-06-15 14:48] LABS: Anion Gap 6.0 mmol/L (3-11); Blood Urea Nitrogen 52.0 mg/dL (8-24); CO2, Blood 31.0 mmol/L (21-32); Calcium, Blood 8.9 mg/dL (8.5-10.1); Chloride, Blood 102.0 mmol/L (98-108); Creatinine, Blood 1.91 mg/dL (0.60-1.20); Glucose, Blood 64.0 mg/dL (70-99); Potassium, Blood 4.9 mmol/L (3.5-5.5); Sodium, Blood 134.0 mmol/L (136-145)
== END 2025-06-15 14:29 | disposition home or self-care (01) ==
LOC: ATC 00:14
PROVIDERS: Family Medicine
DX: L03.115 Cellulitis of right lower limb (principal); J44.89 Other specified chronic obstructive pulmonary disease; I13.0 Hypertensive heart and chronic kidney disease with heart failure and stage 1 through stage 4 chronic kidney disease, or unspecified chronic kidney disease; E11.22 Type 2 diabetes mellitus with diabetic chronic kidney disease; N18.31 Chronic kidney disease, stage 3a; I50.22 Chronic systolic (congestive) heart failure; N17.9 Acute kidney failure, unspecified; I48.19 Other persistent atrial fibrillation; F17.200 Nicotine dependence, unspecified, uncomplicated; E87.1 Hypo-osmolality and hyponatremia; E87.5 Hyperkalemia; N40.0 Benign prostatic hyperplasia without lower urinary tract symptoms; Z79.01 Long term (current) use of anticoagulants; Z79.2 Long term (current) use of antibiotics; Z79.84 Long term (current) use of oral hypoglycemic drugs; Z79.899 Other long term (current) drug therapy; Z88.8 Allergy status to other drugs, medicaments and biological substances; Z95.810 Presence of automatic (implantable) cardiac defibrillator
CPT/HCPCS: 80048; 96365; J0696

== ENCOUNTER 2025-06-16 01:48 | Day surgery (SDC) | payer MEDICARE ==
[2025-06-16] MEDS ORDERED: CefTRIAXone Sodium 1,000 MG in NS 100 ML IV SCH (06:00)
[2025-06-16 13:41] VITALS: BP 137/67
== END 2025-06-16 13:55 | disposition home or self-care (01) ==
LOC: ATC 01:48
DX: L03.115 Cellulitis of right lower limb (principal); J44.89 Other specified chronic obstructive pulmonary disease; I13.0 Hypertensive heart and chronic kidney disease with heart failure and stage 1 through stage 4 chronic kidney disease, or unspecified chronic kidney disease; E11.22 Type 2 diabetes mellitus with diabetic chronic kidney disease; N18.31 Chronic kidney disease, stage 3a; I50.22 Chronic systolic (congestive) heart failure; N17.9 Acute kidney failure, unspecified; I48.19 Other persistent atrial fibrillation; F17.200 Nicotine dependence, unspecified, uncomplicated; E87.1 Hypo-osmolality and hyponatremia; E87.5 Hyperkalemia; N40.0 Benign prostatic hyperplasia without lower urinary tract symptoms; Z79.01 Long term (current) use of anticoagulants; Z79.2 Long term (current) use of antibiotics; Z79.84 Long term (current) use of oral hypoglycemic drugs; Z79.899 Other long term (current) drug therapy; Z88.8 Allergy status to other drugs, medicaments and biological substances; Z95.810 Presence of automatic (implantable) cardiac defibrillator
CPT/HCPCS: 96365; J0696